=== PATIENT | female | born 1985 | race Two or more races ===

== ENCOUNTER 2019-08-06 06:00 | Inpatient (IN) | payer MEDICAID ==
[~2019-08-06] VITALS: Ht 172.7 cm; Wt 70.4 kg
[2019-08-06] MEDS ORDERED: SODIUM CHLORIDE 0.9% 1,000 ML IVB ONE (07:24)
[2019-08-06] MEDS ORDERED: InsuLIN REG 1unit/0.01ml Soln (100units/ml) IV ONE (07:30)
[2019-08-06] MEDS ORDERED: ONDANSETRON HCL 4 MG/2 ML VIAL IV ONE (07:30)
[2019-08-06 07:48] LABS: Basophils # (auto) 0 10 ^3/uL (0-0.2); Basophils % (auto) 0.3 % (0.0-2.0); Eosinophils # (auto) 0 10 ^3/uL (0-0.8); Hematocrit 39.7 % (36.0-46.0); Hemoglobin 12.7 g/dL (12.2-16.2); Lymphocytes # (auto) 1.4 10 ^3/uL (0.4-5.4); Lymphocytes % (auto) 11.1 % (10.0-50.0); Mean Corpuscular Hemoglobin 26.4 pg (28.0-32.0); Mean Corpuscular Hgb Conc. 31.9 g/dL (32.0-36.0); Mean Corpuscular Volume 82.8 fL (80.0-100.0); Monocytes # (auto) 0.5 10 ^3/uL (0-1.3); Monocytes % (auto) 4.1 % (0.0-12.0); Neutrophils # (auto) 10.6 10 ^3/uL (1.6-8.6); Neutrophils % (auto) 84.5 % (37.0-80.0); Nucleated Red Blood Cells % 0.1 %; Platelet Count (auto) 346 10^3/uL (140-450); Red Cell Distribution Width 14.7 % (11.8-14.3); White Blood Cell 12.5 10^3/uL (4.4-10.8)
[2019-08-06] MEDS ORDERED: ONDANSETRON HCL 4 MG/2 ML VIAL ONE ×2 (07:53→14:58)
[2019-08-06] MEDS ORDERED: MORPHINE SULFATE 4 MG/ML SYR/VIAL IV ONE (08:00)
[2019-08-06 08:04] LABS: Albumin 3.8 g/dL (3.4-5.0); Calcium 9.8 mg/dL (8.5-10.1); Magnesium 2.5 mg/dL (1.6-2.6); Potassium 4.1 mmol/L (3.5-5.1)
[2019-08-06 08:06] LABS: Lactic Acid w/Reflex 3.2 mmol/L (0.4-2.0)
[2019-08-06 08:12] LABS: BUN/Creatinine Ratio 17.6; Bilirubin, Total 0.5 mg/dL (0.2-1.0); Total Protein 8.7 g/dL (6.4-8.2)
[2019-08-06] MEDS ORDERED: InsuLIN R (HUMAN) 100 UNITS in SODIUM CHL 0.9% 99 ML IV SCH ×2 (10:22→16:30)
[2019-08-06] MEDS ORDERED: MORPHINE SULF INJ 2 MG/ML SYRINGE 1ML IV PRN (10:30)
[2019-08-06] MEDS ORDERED: PROMETHAZINE HCL 25 MG/ML 1ML IV PRN (10:30)
[2019-08-06] MEDS ORDERED: LORazepam 2MG/ML-1ML VIAL IV PRN (10:30)
[2019-08-06] MEDS ORDERED: DEXTROSE (50%) 50ML SYRG IV PRN ×2 (10:30→17:00)
[2019-08-06] MEDS ORDERED: NITROGLYCERIN 0.4 MG SL TAB SL PRN (10:30)
[2019-08-06] MEDS ORDERED: HYDROmorphone HCL 2 MG/ML VL ONE (10:39)
[2019-08-06] MEDS ORDERED: PROMETHAZINE HCL 25 MG/ML 1ML ONE (10:40)
[2019-08-06] MEDS ORDERED: PANTOPRAZOLE 40 MG/10 ML VIAL INJ IV ONE (10:45)
[2019-08-06] MEDS: HYDROmorphone HCL 2 MG/ML VL IV PRN ×4 (10:49→23:40)
[2019-08-06] MEDS: ACCU-CHEK COMFORT CURVE STRIP VI SCH ×7 (10:53→23:46)
[2019-08-06 11:34] LABS: Urine Bacteria NONE SEEN /hpf (None Seen); Urine Blood 1+ /uL (Negative); Urine Mucus FEW (None Seen); Urine Specific Gravity 1.034 (1.001-1.035); Urine WBC 24 /hpf (0 - 5)
[2019-08-06] MEDS: ONDANSETRON HCL 4 MG/2 ML VIAL IV PRN ×2 (15:06→19:47)
[2019-08-06 15:51] LABS: BUN/Creatinine Ratio 16.3; Calcium 7.9 mg/dL (8.5-10.1); Potassium 3.4 mmol/L (3.5-5.1)
[2019-08-06] MEDS ORDERED: SODIUM CHLORIDE 0.9% 1,000 ML IV SCH (16:22)
[2019-08-06] MEDS ORDERED: INSULIN LANTUS (GLARGINE) 1 /0.01ml (100units/ml) SC SCH (16:30)
[2019-08-06] MEDS ORDERED: POTASSIUM CHLORIDE 40 MEQ, LIDOCAINE 1% (LOCAL ANESTH.) 4 ML in SODIUM CHL 0.9% 100 ML IV ONE (16:30)
[2019-08-06] MEDS: LACTATED RINGER'S 1,000 ML IV SCH (17:05)
[2019-08-06] MEDS: PROMETHAZINE HCL 25 MG/ML 1ML IV PRN ×2 (17:05→23:40)
[2019-08-06] MEDS: InsuLIN REG 1unit/0.01ml Soln (100units/ml) SC SCH ×2 (20:00→23:46)
--- NOTE | 2019-08-06 22:18 | NUR ---
Paged hospitalist for patient elevated B/P. Awaiting call back.
--- NOTE | 2019-08-06 22:18 | NUR ---
Telemetry admit from ER GEOFF STRICKLAND admitted to Telemetry unit after SBAR received. Patient oriented to primary RN, unit, room, bed, and unit policies regarding patient care and visiting hours. Patient now on continuous telemetry monitoring, tele box #51. Patient placed on bedside oxygen, weighed by bedscale and encouraged to call if they need something. All questions and concerns addressed, patient verbalized understanding. Bed locked in lowest position and bed rails up x2. Call light within reach.
--- NOTE | 2019-08-06 22:21 | NUR ---
Hospitalist called back and no new orders given. Will continue to monitor for changes.
[2019-08-06 23:48] VITALS: BP 155/107
[2019-08-07] MEDS ORDERED: GABA300C10 PO (00:15)
[2019-08-07] MEDS ORDERED: INSU100I4 SC (00:15)
[2019-08-07] MEDS ORDERED: TRAZ-181 PO (00:15)
[2019-08-07] MEDS ORDERED: INSLANTI SC (00:15)
[2019-08-07] MEDS ORDERED: PNEUMOCOCCAL VACC POLYS 25 MCG/0.5 ML VIAL IM ONE (00:30)
[2019-08-07] MEDS: InsuLIN REG 1unit/0.01ml Soln (100units/ml) SC SCH ×5 (04:00→20:00)
[2019-08-07] MEDS: ACCU-CHEK COMFORT CURVE STRIP VI SCH ×5 (04:40→20:00)
[2019-08-07] MEDS: HYDROmorphone HCL 2 MG/ML VL IV PRN ×4 (05:15→22:35)
[2019-08-07] MEDS: ONDANSETRON HCL 4 MG/2 ML VIAL IV PRN ×3 (05:15→22:35)
[2019-08-07 05:35] VITALS: BP 145/103
--- NOTE | 2019-08-07 05:41 | NUR ---
Lab informed me that patient requested for gold leaf laborer to come later for blood draw. The gold leaf laborer stated that she will be back at about 9am to try again. Will continue to monitor patient for changes.
--- NOTE | 2019-08-07 07:20 | NUR ---
Opening Shift Note RECEIVED REPORT FROM NOC RN. Assumed care of patient, awake and alert. No S/S of distress/SOB,pain c/o nausea. BED IN LOWEST, LOCKED POSITION WITH SIDE RAILS UP x2 AND CALL LIGHT WITHIN REACH. Instructed on POC,call light within reach patient reminded instructed to call for assistance.patient verbalized understanding.will continue to monitor for changes Q1hr and PRN.
[2019-08-07] MEDS: LACTATED RINGER'S 1,000 ML IV SCH ×3 (08:30→15:52)
[2019-08-07] MEDS: PROMETHAZINE HCL 25 MG/ML 1ML IV PRN (08:40)
[2019-08-07 09:00] VITALS: BP 143/94
--- NOTE | 2019-08-07 09:15 | NUR ---
Solar Installer Technician stated unable to draw blood, patient very hard to stick,will re try again.
--- NOTE | 2019-08-07 10:00 | NUR ---
MD VISIT DR. JAMES HERE TO SEE AND EXAMINED PATIENT,RECEIVED ORDERS CARRIED OUT.
[2019-08-07] MEDS ORDERED: LABETALOL HCL 5 MG/ML 4ML SYRINGE IV PRN (10:15)
[2019-08-07] MEDS ORDERED: cefTRIAXone 1GM/50ML D5W 50 ML IV ONE (10:15)
[2019-08-07] MEDS: PANTOPRAZOLE 40 MG/10 ML VIAL INJ IV SCH (10:41)
--- NOTE | 2019-08-07 11:20 | NUR ---
WOUND CARE NOTE: IN TO SEE PATIENT AT THIS TIME FOR WOUND TO LEFT FOOT. PATIENT RECENTLY ADMITTED TO [facility] WITH DIAGNOSIS OF DKA. CURRENT MITA SCORE IS 19. PATIENT NOTED TO HAVE SMALL WOUND TO LEFT FOOT UPON ADMIT. WOUND PHOTO TAKEN AT THAT TIME BY BEDSIDE NURSE FOR REFERENCE. PATIENT IS NOTED TO HAVE A SMALL PARTIAL THICKNESS OPEN BLISTER, MEASURING 1 X 1 CM TO LEFT LATERAL FOOT. WOUND BED AND PERIWOUND IS RED. SCANT SEROUS DRAINAGE NOTED. APPLIED THERAHONEY, OPTIFOAM GENTLE DRESSING. NO OTHER SKIN INTEGRITY ISSUES SEEN AT THIS TIME. RECOMMEND: EOD/PRN DRESSING CHANGE TO WOUND ON LEFT FOOT. SKIN/WOUND CARE PLAN. NO ADDITIONAL WOUND CARE MONITORING NEEDED AT THIS TIME. Addendum: 08/07/19 at 1510 by Gavi Chan RN Amended: Links added.
[2019-08-07 13:00] VITALS: BP 151/99
--- NOTE | 2019-08-07 13:30 | NUR ---
Lathing Supervisor stated unable to draw blood, patient very hard to stick,will re try again.
[2019-08-07] MEDS: LORazepam 2MG/ML-1ML VIAL IV PRN (15:47)
[2019-08-07 16:49] VITALS: BP 147/104
--- NOTE | 2019-08-07 18:51 | NUR ---
RESTING QUIETLY NO DISTRESS NO DISCOMFORT,STATUS UNCHANGED
--- NOTE | 2019-08-07 18:57 | NUR ---
A.M. blood draw,drawn
[2019-08-07 19:08] LABS: Basophils # (auto) 0.1 10 ^3/uL (0-0.2); Basophils % (auto) 0.7 % (0.0-2.0); Eosinophils # (auto) 0 10 ^3/uL (0-0.8); Mean Corpuscular Hemoglobin 26.2 pg (28.0-32.0); Nucleated Red Blood Cells % 0.1 %
[2019-08-07 19:09] LABS: Hematocrit 37.5 % (36.0-46.0); Hemoglobin 12.3 g/dL (12.2-16.2); Lymphocytes # (auto) 2.7 10 ^3/uL (0.4-5.4); Lymphocytes % (auto) 21.1 % (10.0-50.0); Mean Corpuscular Hgb Conc. 32.9 g/dL (32.0-36.0); Mean Corpuscular Volume 79.8 fL (80.0-100.0); Monocytes # (auto) 1.2 10 ^3/uL (0-1.3); Monocytes % (auto) 9.4 % (0.0-12.0); Neutrophils # (auto) 8.7 10 ^3/uL (1.6-8.6); Neutrophils % (auto) 68.8 % (37.0-80.0); Platelet Count (auto) 332 10^3/uL (140-450); Red Cell Distribution Width 14.3 % (11.8-14.3); White Blood Cell 12.6 10^3/uL (4.4-10.8)
--- NOTE | 2019-08-07 19:20 | NUR ---
Opening Shift Note Assumed care of patient. Patient is awake and alert. No S/S of distress/SOB or pain. Instructed on POC and to call for assist PRN, will continue to monitor for changes Q1hr and PRN. Bed locked in lowest position and bed rails up x2. Call light within reach.
[2019-08-07 19:23] LABS: Albumin 2.6 g/dL (3.4-5.0); Calcium 7.6 mg/dL (8.5-10.1)
[2019-08-07 19:27] LABS: Bilirubin, Total 0.3 mg/dL (0.2-1.0); Phosphorus 1.3 mg/dL (2.5-4.90); Total Protein 6.7 g/dL (6.4-8.2)
[2019-08-07 20:19] LABS: Potassium 2.8 mmol/L (3.5-5.1)
--- NOTE | 2019-08-07 20:24 | NUR ---
Paged Dr. Handy for critical lab value for potassium of 2.8
--- NOTE | 2019-08-07 20:28 | NUR ---
Dr. Handy called back and new orders given. Will carry out orders and continue to monitor patient for changes.
[2019-08-07] MEDS ORDERED: POTASSIUM CHLORIDE 40 MEQ, LIDOCAINE 1% (LOCAL ANESTH.) 4 ML in SODIUM CHL 0.9% 100 ML IV ONE (20:45)
[2019-08-07 22:00] VITALS: BP 147/101
--- NOTE | 2019-08-07 22:36 | NUR ---
Patient pain level of 9/10. Patient requested PRN medication Dilaudid. Dilaudid was given for pain. Will continue to monitor for changes.
[2019-08-08] MEDS: ACCU-CHEK COMFORT CURVE STRIP VI SCH ×6 (00:50→21:49)
[2019-08-08] MEDS: LACTATED RINGER'S 1,000 ML IV SCH ×3 (00:51→16:03)
[2019-08-08] MEDS: HYDROmorphone HCL 2 MG/ML VL IV PRN ×4 (04:17→19:15)
[2019-08-08] MEDS: InsuLIN REG 1unit/0.01ml Soln (100units/ml) SC SCH ×6 (04:19→22:46)
[2019-08-08 05:00] VITALS: BP 138/104
--- NOTE | 2019-08-08 07:00 | NUR ---
Opening Shift Note Received report on the patient. Awake lying in bed. Patient shows no signs of distress at this time. Discussed plan of care with the patient. Bed in lowest position, side rails up x2, and the call light is within reach.
--- NOTE | 2019-08-08 08:00 | NUR ---
Patient had a pain level of 10/10 all over her body
[2019-08-08 09:00] VITALS: BP 146/106
[2019-08-08 09:20] LABS: Albumin 2.7 g/dL (3.4-5.0); Calcium 7.6 mg/dL (8.5-10.1); Potassium 3.2 mmol/L (3.5-5.1)
[2019-08-08 09:24] LABS: BUN/Creatinine Ratio 12.1; Bilirubin, Total 0.3 mg/dL (0.2-1.0); Total Protein 6.8 g/dL (6.4-8.2)
[2019-08-08] MEDS: PANTOPRAZOLE 40 MG/10 ML VIAL INJ IV SCH (09:31)
[2019-08-08] MEDS: cefTRIAXone 1GM/50ML D5W 50 ML IV SCH (09:31)
[2019-08-08 09:50] LABS: Phosphorus 1.4 mg/dL (2.5-4.90)
[2019-08-08 09:51] LABS: Magnesium 2.2 mg/dL (1.6-2.6)
--- NOTE | 2019-08-08 09:59 | NUR ---
Dr. Handy at bedside. New orders received
[2019-08-08] MEDS ORDERED: POTASSIUM CHLORIDE 40 MEQ, LIDOCAINE 1% (LOCAL ANESTH.) 4 ML in SODIUM CHL 0.9% 100 ML IV ONE (10:00)
[2019-08-08 10:03] LABS: Basophils # (auto) 0.1 10 ^3/uL (0-0.2); Basophils % (auto) 1.2 % (0.0-2.0); Eosinophils # (auto) 0 10 ^3/uL (0-0.8); Eosinophils % (auto) 0.3 % (0.0-7.0); Hematocrit 49.2 % (36.0-46.0); Lymphocytes # (auto) 2.6 10 ^3/uL (0.4-5.4); Lymphocytes % (auto) 29.8 % (10.0-50.0); Mean Corpuscular Hemoglobin 26.1 pg (28.0-32.0); Mean Corpuscular Hgb Conc. 32.6 g/dL (32.0-36.0); Monocytes # (auto) 0.8 10 ^3/uL (0-1.3); Monocytes % (auto) 9.5 % (0.0-12.0); Neutrophils # (auto) 5.2 10 ^3/uL (1.6-8.6); Neutrophils % (auto) 59.2 % (37.0-80.0); Nucleated Red Blood Cells % 0.2 %; Platelet Count (auto) 151 10^3/uL (140-450); Red Blood Cells 6.14 10^6/uL (4.0-5.20); Red Cell Distribution Width 14.6 % (11.8-14.3); White Blood Cell 8.8 10^3/uL (4.4-10.8)
[2019-08-08] MEDS ORDERED: LISINOPRIL 5 MG TAB PO ONE (10:15)
--- NOTE | 2019-08-08 15:31 | NUR ---
Nutrition Assessment Notes Please refer to link for full assessment notes. Est Energy needs: 6124-6402 kcals (25-30 kcal/kgBW) Est Protein needs: 49-61 gms/day (0.8-1.0 gm/kgBW) Will continue to monitor and reassess prn. Addendum: 08/08/19 at [address] Amended: Links added.
[2019-08-08] MEDS: LORazepam 2MG/ML-1ML VIAL IV PRN ×2 (15:52→22:35)
[2019-08-08 17:00] VITALS: BP 135/99
--- NOTE | 2019-08-08 18:52 | NUR ---
Patient refused to ambulate on this shift.
--- NOTE | 2019-08-08 19:10 | NUR ---
Opening Note Assumed care of patient, awake and alert. No S/S of distress/SOB, patient asking for Ativan to sleep and pain medication. Instructed patient to ambulate, per patient, she ambulated last 2 days ago. Patient reported not tolerating PO nutrition. Instructed on POC and to call for assist as neede, will continue to monitor.
[2019-08-08 22:00] VITALS: BP 135/94
[2019-08-09] MEDS: ACCU-CHEK COMFORT CURVE STRIP VI SCH ×6 (00:22→20:00)
[2019-08-09] MEDS: LACTATED RINGER'S 1,000 ML IV SCH ×5 (00:30→22:27)
[2019-08-09] MEDS: InsuLIN REG 1unit/0.01ml Soln (100units/ml) SC SCH ×6 (00:32→20:00)
[2019-08-09] MEDS: ONDANSETRON HCL 4 MG/2 ML VIAL IV PRN (04:11)
[2019-08-09] MEDS: HYDROmorphone HCL 2 MG/ML VL IV PRN ×3 (04:11→19:51)
[2019-08-09 05:00] VITALS: BP 121/83
[2019-08-09 07:20] LABS: Basophils # (auto) 0 10 ^3/uL (0-0.2); Basophils % (auto) 0.5 % (0.0-2.0); Eosinophils # (auto) 0.1 10 ^3/uL (0-0.8); Hemoglobin 13.5 g/dL (12.2-16.2); Lymphocytes # (auto) 3.1 10 ^3/uL (0.4-5.4); Lymphocytes % (auto) 35.6 % (10.0-50.0); Mean Corpuscular Hemoglobin 26.1 pg (28.0-32.0); Mean Corpuscular Volume 79.2 fL (80.0-100.0); Monocytes # (auto) 0.8 10 ^3/uL (0-1.3); Monocytes % (auto) 8.7 % (0.0-12.0); Neutrophils # (auto) 4.7 10 ^3/uL (1.6-8.6); Neutrophils % (auto) 54.2 % (37.0-80.0); Nucleated Red Blood Cells % 0.2 %; Platelet Count (auto) 343 10^3/uL (140-450); Red Blood Cells 5.18 10^6/uL (4.0-5.20); Red Cell Distribution Width 14.4 % (11.8-14.3); White Blood Cell 8.7 10^3/uL (4.4-10.8)
[2019-08-09 07:27] LABS: Albumin 2.4 g/dL (3.4-5.0); Calcium 7.7 mg/dL (8.5-10.1); Magnesium 2.1 mg/dL (1.6-2.6)
[2019-08-09 07:32] LABS: BUN/Creatinine Ratio 12.9; Bilirubin, Total 0.3 mg/dL (0.2-1.0); Total Protein 6.1 g/dL (6.4-8.2)
[2019-08-09 08:00] VITALS: BP 135/97
--- NOTE | 2019-08-09 08:58 | NUR ---
MD PAGE CALLED DR JAMES AND MESSAGE LEFT, REGARDING POTASSIUM KCL 3.0, ALSO PT HAS NO IV AND MIDLINE ORDER WAS ENTERED, PT ALSO REQUESTING NORCO AND ATIVAN PO SINCE THERE IS NO IV ACCESS, CONT CARE
[2019-08-09 09:00] VITALS: BP 97/98
[2019-08-09] MEDS: PANTOPRAZOLE 40 MG/10 ML VIAL INJ IV SCH (10:00)
[2019-08-09] MEDS ORDERED: HYDROcodone-ACET 5/325MG TAB PO PRN (10:15)
[2019-08-09] MEDS ORDERED: POTASSIUM CHLORIDE 40 MEQ, LIDOCAINE 1% (LOCAL ANESTH.) 4 ML in SODIUM CHL 0.9% 100 ML IV ONE (10:15)
--- NOTE | 2019-08-09 10:16 | NUR ---
SPOKE WITH DR JAMES AT NURSING STATION, NEW ORDERS RECEIVED FOR POTASSIUM AND PAIN MEDICATIONS, AWARE PT IS PENDING ML FOR IV ACCESS, CONT CARE
[2019-08-09] MEDS: cefTRIAXone 1GM/50ML D5W 50 ML IV SCH (10:35)
[2019-08-09] MEDS: LISINOPRIL 5 MG TAB PO SCH (10:36)
[2019-08-09] MEDS: LORazepam 0.5 MG TAB PO PRN ×2 (10:36→21:02)
--- NOTE | 2019-08-09 11:56 | NUR ---
MIDLINE RN AT BEDSIDE 20G INSERTED TO LAC, SITE PATENT AND BENIGN, CONT CARE
[2019-08-09 13:00] VITALS: BP 122/88
[2019-08-09 17:00] VITALS: BP 122/79
--- NOTE | 2019-08-09 19:15 | NUR ---
Opening note Assumed care of patient. Patient alert and orientated x4. No SOB or distress noted. Patient states she has pain. In her head. will medicate per orders. POC reviewed. No questions at this time. Bed locked in lowest position. Side rails up 2x. Call light within reach. Will continue to monitor.
[2019-08-09] MEDS: POTASSIUM CHL 20 Meq TABLET PO SCH (21:01)
[2019-08-09 22:32] VITALS: BP 155/104
[2019-08-10] VITALS (7 sets, daily range): BP systolic 119–154; BP diastolic 77–102
[2019-08-10] MEDS: InsuLIN REG 1unit/0.01ml Soln (100units/ml) SC SCH ×6 (00:16→20:00)
[2019-08-10] MEDS: ACCU-CHEK COMFORT CURVE STRIP VI SCH ×6 (00:16→20:00)
[2019-08-10] MEDS: HYDROmorphone HCL 2 MG/ML VL IV PRN ×6 (00:27→22:02)
[2019-08-10] MEDS: LORazepam 0.5 MG TAB PO PRN ×3 (03:16→20:33)
--- NOTE | 2019-08-10 07:25 | NUR ---
Opening Shift Note Assumed care of patient, awake and alert. No S/S of distress/SOB or pain noted at this time. Instructed on POC and to call for assist PRN, call light within reach, IV to left upper arm patent and benign, will continue to monitor for changes Q1hr and PRN.
--- NOTE | 2019-08-10 07:25 | NUR ---
Closing note Endorsed care to day shift RN.
[2019-08-10] MEDS: LACTATED RINGER'S 1,000 ML IV SCH ×2 (08:30→12:45)
[2019-08-10] MEDS: LISINOPRIL 5 MG TAB PO SCH (09:18)
[2019-08-10] MEDS: PANTOPRAZOLE 40 MG/10 ML VIAL INJ IV SCH (09:19)
[2019-08-10] MEDS: POTASSIUM CHL 20 Meq TABLET PO SCH ×3 (09:19→22:23)
[2019-08-10] MEDS: cefTRIAXone 1GM/50ML D5W 50 ML IV SCH (09:20)
--- NOTE | 2019-08-10 09:50 | NUR ---
MD PAGE CALLED DR JAMES AND MESSAGE LEFT WITH CIVIL DIVISION DEPUTY SHERIFF, REGARDING POTASSIUM KCL 2.8 , CONT CARE
[2019-08-10 10:08] LABS: Basophils # (auto) 0 10 ^3/uL (0-0.2); Eosinophils # (auto) 0.4 10 ^3/uL (0-0.8); Lymphocytes # (auto) 2.3 10 ^3/uL (0.4-5.4); Mean Corpuscular Hemoglobin 26.3 pg (28.0-32.0); Monocytes # (auto) 0.5 10 ^3/uL (0-1.3); Neutrophils # (auto) 3.6 10 ^3/uL (1.6-8.6); Nucleated Red Blood Cells % 0.1 %
[2019-08-10 10:10] LABS: Basophils % (auto) 0.5 % (0.0-2.0); Eosinophils % (auto) 5.5 % (0.0-7.0); Hematocrit 34.6 % (36.0-46.0); Hemoglobin 11.3 g/dL (12.2-16.2); Lymphocytes % (auto) 33.6 % (10.0-50.0); Mean Corpuscular Hgb Conc. 32.6 g/dL (32.0-36.0); Mean Corpuscular Volume 80.8 fL (80.0-100.0); Monocytes % (auto) 7.9 % (0.0-12.0); Neutrophils % (auto) 52.5 % (37.0-80.0); Platelet Count (auto) 263 10^3/uL (140-450); Red Blood Cells 4.28 10^6/uL (4.0-5.20); Red Cell Distribution Width 14.9 % (11.8-14.3); White Blood Cell 6.9 10^3/uL (4.4-10.8)
[2019-08-10 10:26] LABS: BUN/Creatinine Ratio 9.5; Calcium 7.3 mg/dL (8.5-10.1)
[2019-08-10 10:29] LABS: Potassium 2.8 mmol/L (3.5-5.1)
[2019-08-10] MEDS ORDERED: POTASSIUM CHLORIDE 40 MEQ, LIDOCAINE 1% (LOCAL ANESTH.) 4 ML in SODIUM CHL 0.9% 100 ML IV ONE (12:45)
--- NOTE | 2019-08-10 15:49 | NUR ---
Nutrition Followup Notes Pt wt is 70.1 kg Pt was sleeping with no relatives at bedside when rounded this morning. Pt is with a Clear Liquid diet, appetite is fair aeb ave 66% PO intake over three meals. Pt with no noted distress per RN doc. Est Energy needs: 6491-8616 kcals (25-30 kcal/kgBW) Est Protein needs: 49-61 gms/day (0.8-1.0 gm/kgBW) Will continue to monitor and reassess prn. LABS: GLUC 139 H, ALB 2.4 L, CA 7.3 L GI:Last BM noted on 08/08 per RN doc BS: 18 mod risk. Please refer to wound assessment report for full details. PES: Problem 1) Increased nutrient needs r/t pt with poor appetite aeb pt ave PO intake of 32% over 4 meals 2) Food and nutrition knowledge deficit r/t pt dietary non-compliance aeb pt hyperglycemia, DKA 3) Altered nutrition related lab values r/t current medical condition aeb hypokalemia, hyperchloremia, hyperglycemia, hypocalcemia, mod hypoalbuminemia Comments Will continue to closely monitor pertinent labs, PO intake and skin status prn. Will followup in 3-5 days 1) Continue to closely monitor pt PO intake to meet at least 75% of meals 2) Gradually advance pt to oral CCHO 60g diet when medically feasible and as tolerated 3) Refer pt to RD/CDE for nutrition education upon D/C 4) Continue current plan of care
[2019-08-11] MEDS: ACCU-CHEK COMFORT CURVE STRIP VI SCH ×6 (00:07→19:44)
[2019-08-11] MEDS: LACTATED RINGER'S 1,000 ML IV SCH ×2 (01:24→15:25)
[2019-08-11] MEDS: HYDROmorphone HCL 2 MG/ML VL IV PRN ×6 (02:05→22:33)
--- NOTE | 2019-08-11 03:30 | NUR ---
Opening Shift Note: Assumed care of patient. Patient asleep at this time. No S/S of distress/SOB or pain. Bed in lowest locked position, side rails up x 2, call light within reach. Patient will be instructed on POC and to call for assist PRN, will continue to monitor for changes Q1hr and PRN.
[2019-08-11] MEDS: InsuLIN REG 1unit/0.01ml Soln (100units/ml) SC SCH ×6 (04:00→19:51)
[2019-08-11 04:30] VITALS: BP 128/76
[2019-08-11] MEDS: LORazepam 0.5 MG TAB PO PRN ×3 (04:44→19:51)
[2019-08-11 09:00] VITALS: BP 135/93
[2019-08-11] MEDS: POTASSIUM CHL 20 Meq TABLET PO SCH ×2 (09:47→22:12)
[2019-08-11] MEDS: PANTOPRAZOLE 40 MG/10 ML VIAL INJ IV SCH (09:47)
[2019-08-11] MEDS: cefTRIAXone 1GM/50ML D5W 50 ML IV SCH (09:47)
[2019-08-11] MEDS: LISINOPRIL 5 MG TAB PO SCH (09:49)
[2019-08-11 11:44] LABS: Albumin 2.5 g/dL (3.4-5.0); BUN/Creatinine Ratio 8.5; Calcium 7.6 mg/dL (8.5-10.1); Magnesium 2.1 mg/dL (1.6-2.6); Potassium 3.6 mmol/L (3.5-5.1)
[2019-08-11 11:47] LABS: Bilirubin, Total 0.5 mg/dL (0.2-1.0); Total Protein 6.2 g/dL (6.4-8.2)
[2019-08-11 12:22] VITALS: BP 137/89
--- NOTE | 2019-08-11 12:49 | NUR ---
DR. MENDIETA: Dr. Sherice Handy at bedside. Discussed POC with patient.
[2019-08-11 17:00] VITALS: BP 117/88
--- NOTE | 2019-08-11 18:52 | NUR ---
Closing note: Patient resting in bed. No S/S of distress or SOB at this time. Care endorsed to NOC RN.
--- NOTE | 2019-08-11 19:15 | NUR ---
Opening Shift Note: Assumed care of patient. Patient is awake, alert, and oriented X 4. No S/S of respiratory distress noted. No SOB reported. Respirations are regular and non-labored. Bed in lowest locked position, side rails up x 2, call light within reach. Tele box matches to the monitor. Patient instructed on POC and to call for assistance as needed. Will continue to monitor for changes Q1hr and PRN.
[2019-08-11 20:00] VITALS: BP 114/82
[2019-08-11 22:00] VITALS: BP 114/82
[2019-08-11] MEDS ORDERED: INSULIN LANTUS (GLARGINE) 1 /0.01ml (100units/ml) SC SCH (22:00)
[2019-08-12] MEDS: ACCU-CHEK COMFORT CURVE STRIP VI SCH ×4 (00:35→12:00)
[2019-08-12] MEDS: HYDROmorphone HCL 2 MG/ML VL IV PRN ×3 (02:36→11:50)
[2019-08-12] MEDS: InsuLIN REG 1unit/0.01ml Soln (100units/ml) SC SCH ×4 (04:33→12:00)
[2019-08-12] MEDS: LACTATED RINGER'S 1,000 ML IV SCH (04:41)
[2019-08-12 05:00] VITALS: BP 135/95
--- NOTE | 2019-08-12 07:20 | NUR ---
Opening Shift Note: Assumed care of patient, awake and alert. No S/S of distress/SOB or pain. Bed in lowest locked position, side rails up x 2, call light within reach. Patient instructed on POC and to call for assist PRN, will continue to monitor for changes Q1hr and PRN.
[2019-08-12 08:51] VITALS: BP 133/95
[2019-08-12] MEDS: cefTRIAXone 1GM/50ML D5W 50 ML IV SCH (09:01)
[2019-08-12] MEDS: LISINOPRIL 5 MG TAB PO SCH (09:02)
[2019-08-12] MEDS: POTASSIUM CHL 20 Meq TABLET PO SCH (09:02)
[2019-08-12] MEDS: PANTOPRAZOLE 40 MG/10 ML VIAL INJ IV SCH (09:02)
[2019-08-12] MEDS: LORazepam 0.5 MG TAB PO PRN (09:02)
[2019-08-12 11:38] LABS: Potassium 4.2 mmol/L (3.5-5.1)
[2019-08-12 11:43] LABS: BUN/Creatinine Ratio 6.7; Calcium 8.1 mg/dL (8.5-10.1)
[2019-08-12 13:27] VITALS: BP 131/78
[2019-08-12 13:50] VITALS: BP 133/95
--- NOTE | 2019-08-12 15:14 | NUR ---
Discharge instructions given as ordered. Encourage to follow up with PMD as instructed. All questions and concerns addressed. Patient verbalized understanding. Medication reconciliation form completed and copy given to patient. IV removed with catheter intact, pressure dressing applied. Telemetry unit returned to ICU. Discharge wound photo taken. Patient taken to vehicle via wheelchair with all personal belongings, accompanied by staff and family member. No distress noted at time of departure.
== END 2019-08-12 15:14 | disposition home or self-care (01) | DRG 720 ==
LOC: ER 06:00 → OVERFLOW 06:01 → TELE-WESTW 21:56
PROVIDERS: ADMIT Nurse Practitioner Acute Care; ATTEND Internal Medicine
DX: A41.9 Sepsis, unspecified organism (principal); N17.0 Acute kidney failure with tubular necrosis; E43 Unspecified severe protein-calorie malnutrition; E11.10 Type 2 diabetes mellitus with ketoacidosis without coma; E86.0 Dehydration; N39.0 Urinary tract infection, site not specified; R03.0 Elevated blood-pressure reading, without diagnosis of hypertension; E11.65 Type 2 diabetes mellitus with hyperglycemia; Z91.19 Patient's noncompliance with other medical treatment and regimen; Z79.891 Long term (current) use of opiate analgesic; Z79.4 Long term (current) use of insulin; Z89.201 Acquired absence of right upper limb, unspecified level; Z82.49 Family history of ischemic heart disease and other diseases of the circulatory system; Z83.3 Family history of diabetes mellitus; Z68.23 Body mass index [BMI] 23.0-23.9, adult; Z89.221 Acquired absence of right upper limb above elbow; Z88.0 Allergy status to penicillin
CPT/HCPCS: 36415; 36600; 71045; 74022; 80048; 80053; 81001; 82010; 82150; 82805; 82962; 83605; 83690; 83735; 83930; 84100; 84702; 85025; 87081; 93005; 96365; 96368; 96375; 99291; C9113; G0378; J0696; J1815; J2001; J2405; J3490

== ENCOUNTER 2019-09-27 20:16 | Inpatient (IN) | payer MEDICAID ==
[~2019-09-27] VITALS: Ht 172.7 cm; Wt 57.7 kg
[~2019-09-27 20:16] MED LIST: GABA300C10 PO; INSLANTI SC; INSU100I4 SC; TRAZ-181 PO
[2019-09-27] MEDS ORDERED: ONDANSETRON HCL 4 MG/2 ML VIAL IV ONE (22:30)
[2019-09-27] MEDS ORDERED: SODIUM CHLORIDE 0.9% 1,000 ML IV ONE (22:30)
[2019-09-27] MEDS ORDERED: HYDROmorphone HCL 2 MG/ML VL IV ONE (22:30)
[2019-09-27] MEDS ORDERED: DexAMETHasone SOD PHOS 10MG/1ML VIAL INJ IV ONE (22:45)
[2019-09-27] MEDS ORDERED: DOXYCYCLINE 100MG/250ML 250 ML IV ONE (22:45)
[2019-09-27 23:42] LABS: Basophils # (auto) 0 10 ^3/uL (0-0.2); Basophils % (auto) 0.1 % (0.0-2.0); Eosinophils # (auto) 0 10 ^3/uL (0-0.8); Mean Corpuscular Volume 83.4 fL (80.0-100.0); Monocytes # (auto) 0.2 10 ^3/uL (0-1.3); Monocytes % (auto) 1.7 % (0.0-12.0); Red Cell Distribution Width 15.2 % (11.8-14.3); White Blood Cell 10.9 10^3/uL (4.4-10.8)
[2019-09-27 23:46] LABS: Hematocrit 47.9 % (36.0-46.0); Hemoglobin 15.4 g/dL (12.2-16.2); Lymphocytes # (auto) 1.4 10 ^3/uL (0.4-5.4); Lymphocytes % (auto) 12.8 % (10.0-50.0); Mean Corpuscular Hemoglobin 26.8 pg (28.0-32.0); Mean Corpuscular Hgb Conc. 32.2 g/dL (32.0-36.0); Neutrophils # (auto) 9.3 10 ^3/uL (1.6-8.6); Neutrophils % (auto) 85.4 % (37.0-80.0); Nucleated Red Blood Cells % 0.1 %; Platelet Count (auto) 326 10^3/uL (140-450); Red Blood Cells 5.74 10^6/uL (4.0-5.20)
[2019-09-28 00:03] LABS: Albumin 3.6 g/dL (3.4-5.0); Anion Gap 12 (5-15); Blood Urea Nitrogen 20 mg/dL (7-18); Calcium 9.6 mg/dL (8.5-10.1); Carbon Dioxide 22 mmol/L (21-32); Chloride 99 mmol/L (98-107); Glucose 344 mg/dL (74-106); Lipase 28 U/L (73-393); Potassium 4.3 mmol/L (3.5-5.1); Sodium 133 mmol/L (136-145)
[2019-09-28 00:05] LABS: Alanine Aminotransferase 23 U/L (13-56); Aspartate Aminotransferase 30 U/L (15-37); BUN/Creatinine Ratio 11.2; GFR African American 42 mL/min; GFR Non-African American 35 mL/min
[2019-09-28 00:07] LABS: Alkaline Phosphatase 86 U/L (45-117); Bilirubin, Total 0.8 mg/dL (0.2-1.0); Total Protein 9.4 g/dL (6.4-8.2)
[2019-09-28] MEDS ORDERED: levoFLOXacin 500MG 100 ML IV ONE (00:45)
[2019-09-28] MEDS ORDERED: LABETALOL HCL 5 MG/ML 4ML SYRINGE IV ONE (00:45)
[2019-09-28] MEDS ORDERED: VANCOMYCIN 1GM/250ML 250 ML IV ONE (00:45)
[2019-09-28] MEDS ORDERED: SODIUM CHLORIDE 0.9% 1,000 ML IV ONE (01:00)
[2019-09-28] MEDS ORDERED: PROMETHAZINE HCL 25 MG/ML 1ML IV ONE ×2 (02:45→08:30)
[2019-09-28 05:36] LABS: Alcohol, Urine < 3.0 mg/dL (0-10); Amphetamine Screen, Urine NEGATIVE (NEGATIVE); Barbiturate Scree,Urine NEGATIVE (NEGATIVE); Benzodiazephine Screen, Urine NEGATIVE (NEGATIVE); Cannabinoid Screen, Urine POSITIVE (NEGATIVE); Cocaine Screen, Urine NEGATIVE (NEGATIVE); Opiate Scree,Urine NEGATIVE (NEGATIVE); Phencyclidine Screen, Urine NEGATIVE (NEGATIVE)
[2019-09-28 06:06] LABS: Urine Bacteria FEW /hpf (None Seen); Urine Blood 1+ /uL (Negative); Urine Hyaline Cast FEW /lpf (0 - 2); Urine Specific Gravity 1.024 (1.001-1.035); Urine WBC 5 /hpf (0 - 5)
[2019-09-28] MEDS ORDERED: ONDANSETRON HCL 4 MG/2 ML VIAL IV ONE (06:15)
[2019-09-28] MEDS ORDERED: HYDROmorphone HCL 2 MG/ML VL IV ONE (07:00)
[2019-09-28] MEDS ORDERED: SODIUM CHLORIDE 0.9% 1,000 ML IV SCH (08:29)
[2019-09-28] MEDS ORDERED: ACETAMINOPHEN 500 MG TAB PO PRN (08:30)
[2019-09-28] MEDS ORDERED: LORazepam 2MG/ML-1ML VIAL IV ONE (08:30)
[2019-09-28] MEDS ORDERED: MORPHINE SULF INJ 2 MG/ML SYRINGE 1ML IV PRN (08:45)
[2019-09-28] MEDS ORDERED: DEXTROSE (50%) 50ML SYRG IV PRN ×3 (08:45→17:30)
[2019-09-28] MEDS ORDERED: NITROGLYCERIN 0.4 MG SL TAB SL PRN (08:45)
[2019-09-28] MEDS ORDERED: InsuLIN REG 1unit/0.01ml Soln (100units/ml) SC ONE (09:00)
[2019-09-28 09:50] LABS: Basophils # (auto) 0 10 ^3/uL (0-0.2); Eosinophils # (auto) 0 10 ^3/uL (0-0.8); Hemoglobin 12.1 g/dL (12.2-16.2); Mean Corpuscular Volume 81.4 fL (80.0-100.0); Monocytes # (auto) 0.3 10 ^3/uL (0-1.3); Monocytes % (auto) 2.6 % (0.0-12.0)
[2019-09-28 09:51] LABS: Basophils % (auto) 0.3 % (0.0-2.0); Hematocrit 37.9 % (36.0-46.0); Lymphocytes # (auto) 1.2 10 ^3/uL (0.4-5.4); Lymphocytes % (auto) 9.4 % (10.0-50.0); Mean Corpuscular Hemoglobin 25.9 pg (28.0-32.0); Mean Corpuscular Hgb Conc. 31.9 g/dL (32.0-36.0); Neutrophils % (auto) 87.7 % (37.0-80.0); Platelet Count (auto) 277 10^3/uL (140-450); Red Blood Cells 4.65 10^6/uL (4.0-5.20); Red Cell Distribution Width 14.8 % (11.8-14.3); White Blood Cell 12.5 10^3/uL (4.4-10.8)
[2019-09-28] MEDS ORDERED: ENOXAPARIN SOD 40 MG/0.4 ML SYRINGE SC SCH (10:00)
[2019-09-28] MEDS: ZINC SULFATE 220mg CAP or TAB PO SCH (10:00)
[2019-09-28 10:12] LABS: Calcium 8.2 mg/dL (8.5-10.1); Magnesium 1.8 mg/dL (1.6-2.6); Potassium 3.6 mmol/L (3.5-5.1)
[2019-09-28 10:16] LABS: BUN/Creatinine Ratio 14.1; Bilirubin, Total 0.5 mg/dL (0.2-1.0); Total Protein 7.6 g/dL (6.4-8.2)
[2019-09-28 10:21] LABS: CRP High Sensitivity 2.88 mg/dL (< 0.3)
[2019-09-28] MEDS ORDERED: InsuLIN REG 1unit/0.01ml Soln (100units/ml) SC SCH ×2 (12:00→18:00)
[2019-09-28] MEDS: ASCORBIC ACID 1,000 MG TAB PO SCH (12:10)
[2019-09-28] MEDS: CHOLECALCIFEROL (VITD3) 2,000 UNIT CAP PO SCH (12:10)
[2019-09-28] MEDS: PANTOPRAZOLE 40 MG/10 ML VIAL INJ IV SCH (12:10)
[2019-09-28] MEDS: ACCU-CHEK COMFORT CURVE STRIP VI SCH ×3 (12:18→18:00)
[2019-09-28] MEDS: DOXYCYCLINE 100MG/250ML 250 ML IV SCH (14:00)
[2019-09-28 14:25] VITALS: BP 152/92
[2019-09-28] MEDS: metroNIDAZOLE 500MG/100ML 100 ML IV SCH ×2 (15:15→22:38)
[2019-09-28] MEDS: InsuLIN REG 1unit/0.01ml Soln (100units/ml) SC SCH (17:42)
[2019-09-28] MEDS ORDERED: ACCU-CHEK COMFORT CURVE STRIP VI SCH (18:00)
[2019-09-28] MEDS: LORazepam 2MG/ML-1ML VIAL IV PRN (20:09)
[2019-09-28] MEDS: MORPHINE SULF INJ 2 MG/ML SYRINGE 1ML IV PRN (20:09)
[2019-09-28] MEDS: ONDANSETRON HCL 4 MG/2 ML VIAL IV PRN (20:09)
[2019-09-28] MEDS: ALBUTEROL SULF HFA 90MCG INH 200DOSE IN SCH (22:00)
--- NOTE | 2019-09-28 22:27 | NUR ---
Telemetry admit from ER GEOFF STRICKLAND admitted to Telemetry unit. Patient oriented to Teressa Dennison, primary RN, unit, room, bed, and unit policies regarding patient care and visiting hours. Patient now on continuous telemetry monitoring, tele box #25 and telemetry reading on arrival to unit is SR in 90's. Patient placed on bedside oxygen, weighed by bedscale and encouraged to call if they need something. All questions and concerns addressed, patient verbalized understanding.
[2019-09-28] MEDS: HYDROcodone-ACET 5/325MG TAB PO PRN (22:59)
--- NOTE | 2019-09-28 23:19 | NUR ---
Respiratory note: MDI HELD AT THIS TIME, PT IN NO RESPIRATORY DISTRESS. WILL CONTINUE TO MONITOR.
--- NOTE | 2019-09-29 | NUR ---
Attempted admission questions Patient refused admit questions at this time. Explained to patient the need for admission process, patient verbalized understanding and continued to refuse stating she just wanted her medication. Patient educated on PRN medications and when they are available again. No medications available at this time.
[2019-09-29] MEDS: DOXYCYCLINE 100MG/250ML 250 ML IV SCH ×3 (00:03→22:00)
[2019-09-29] MEDS: ACCU-CHEK COMFORT CURVE STRIP VI SCH ×4 (00:25→18:00)
[2019-09-29] MEDS: InsuLIN REG 1unit/0.01ml Soln (100units/ml) SC SCH ×4 (00:25→18:00)
[2019-09-29] MEDS: MORPHINE SULF INJ 2 MG/ML SYRINGE 1ML IV PRN ×5 (00:26→21:42)
--- NOTE | 2019-09-29 01:20 | NUR ---
N/V Patient complains of nausea and began spitting up minimum amount of brown emesis. Emesis bag provided to patient, patient cleansed. Zofran not due at this time, will administer when available. Will continue to monitor.
[2019-09-29] MEDS: ONDANSETRON HCL 4 MG/2 ML VIAL IV PRN ×2 (01:55→14:08)
[2019-09-29 05:00] VITALS: BP 150/94
[2019-09-29] MEDS: metroNIDAZOLE 500MG/100ML 100 ML IV SCH ×3 (06:26→21:41)
--- NOTE | 2019-09-29 06:54 | NUR ---
Lab draw Per supervisor laboratory, patient is a hard stick and unable to draw from patient at this time. Lab to try at different time.
[2019-09-29] MEDS: ALBUTEROL SULF HFA 90MCG INH 200DOSE IN SCH ×3 (07:30→21:28)
--- NOTE | 2019-09-29 07:30 | NUR ---
Respiratory note: MDI NOT AVAILABLE. PHARMACY WILL BE CONTACTED WHEN COVID RESULTS ARE AVAILABLE. HR 64, RR 14, SPO2 98% RA, BS CLEAR AND DIMINISHED. NO SIGNS OR SYMPTOMS OF RESPIRATORY DISTRESS NOTED. WILL CONTINUE TO MONITOR ORDERED.
[2019-09-29 08:00] VITALS: BP 160/107
[2019-09-29] MEDS: LORazepam 2MG/ML-1ML VIAL IV PRN ×2 (08:10→16:07)
[2019-09-29] MEDS: CHOLECALCIFEROL (VITD3) 2,000 UNIT CAP PO SCH (09:20)
[2019-09-29] MEDS: ZINC SULFATE 220mg CAP or TAB PO SCH (09:20)
[2019-09-29] MEDS: ASCORBIC ACID 1,000 MG TAB PO SCH (09:20)
[2019-09-29] MEDS: PANTOPRAZOLE 40 MG/10 ML VIAL INJ IV SCH (09:54)
[2019-09-29 13:00] VITALS: BP 163/107
[2019-09-29 14:16] LABS: Basophils # (auto) 0 10 ^3/uL (0-0.2); Basophils % (auto) 0.1 % (0.0-2.0); Eosinophils # (auto) 0 10 ^3/uL (0-0.8); Monocytes # (auto) 0.5 10 ^3/uL (0-1.3); Monocytes % (auto) 3.9 % (0.0-12.0)
[2019-09-29 14:17] LABS: Hemoglobin 12.1 g/dL (12.2-16.2); Lymphocytes # (auto) 1.5 10 ^3/uL (0.4-5.4); Lymphocytes % (auto) 11.5 % (10.0-50.0); Mean Corpuscular Hemoglobin 26.5 pg (28.0-32.0); Mean Corpuscular Hgb Conc. 32.8 g/dL (32.0-36.0); Mean Corpuscular Volume 80.9 fL (80.0-100.0); Neutrophils % (auto) 84.5 % (37.0-80.0); Platelet Count (auto) 337 10^3/uL (140-450); Red Blood Cells 4.57 10^6/uL (4.0-5.20)
[2019-09-29 14:39] LABS: Albumin 2.7 g/dL (3.4-5.0); BUN/Creatinine Ratio 20.4; Calcium 7.7 mg/dL (8.5-10.1); Potassium 3.6 mmol/L (3.5-5.1)
[2019-09-29 14:42] LABS: Bilirubin, Total 0.6 mg/dL (0.2-1.0); Total Protein 6.9 g/dL (6.4-8.2)
--- NOTE | 2019-09-29 15:00 | NUR ---
Respiratory note: MEDICATION HELD AWAITING PENDING COVID RESULTS. NO RESPIRATORY DISTRESS NOTED AT THIS TIME. HR 103, RR 16. SPO2 96%RN VONNIE AWARE OF HELD MEDICATION.
--- NOTE | 2019-09-29 15:00 | NUR ---
Nutrition Assessment/Consult Notes Please refer to link for full assessment notes. Note: kg wt adjusted for rt arm amp Est Energy needs: 0076-6994 kcals (25-30 kcal/60.8kgBW) Est Protein needs: 49-61 gms/day (0.8-1.0 gm/60.8kgBW) Will continue to monitor and reassess prn. Addendum: 09/29/19 at [address] Amended: Links added.
[2019-09-29 16:55] VITALS: BP 160/98
--- NOTE | 2019-09-29 19:00 | NUR ---
Opening Shift Note Assumed care of patient, orientated and alert. No S/S of distress/SOB or pain. Patient resting comfortably with eyes closed. Safety measures in place bed in lowest position, side rails up x2, and call light within reach. Instructed on POC and to call for assist PRN, will continue to monitor for changes Q1hr and PRN.
--- NOTE | 2019-09-29 20:54 | NUR ---
Respiratory note: MDI HELD AT THIS TIME AWAITING COVID RESULTS, ASSESSED PT AT THIS TIME, NO DISTRESS NOTED. PULSE OX 100% ON RA, HR 119, RR 18
--- NOTE | 2019-09-29 22:46 | NUR ---
Patient COVID test resulted negative. Patient transferring to room 297 A. Report given to Carmen BUI.
--- NOTE | 2019-09-29 23:32 | NUR ---
Received patient from room 239. Transferred via WC to room 297-A. Patient is A&O x4, on RA. No s/s of distress noted. Reports 9/10 abdominal pain. Informed patient that pain medication is not yet due at this time. Patient verbalizes understanding. PIV in left hand is intact and patent. Flushed with 10ml NS. Bed is in low locked position with side rails up x2. Call light is within reach and patient encouraged to call for assistance when needed.
[2019-09-30] MEDS: ACCU-CHEK COMFORT CURVE STRIP VI SCH ×4 (00:36→18:00)
[2019-09-30] MEDS: InsuLIN REG 1unit/0.01ml Soln (100units/ml) SC SCH ×4 (00:43→18:00)
[2019-09-30] MEDS: LORazepam 2MG/ML-1ML VIAL IV PRN ×3 (00:43→18:43)
[2019-09-30] MEDS ORDERED: INSULIN LANTUS (GLARGINE) 1 /0.01ml (100units/ml) SC ONE (01:45)
[2019-09-30] MEDS: MORPHINE SULF INJ 2 MG/ML SYRINGE 1ML IV PRN ×4 (02:50→22:44)
[2019-09-30] MEDS: ONDANSETRON HCL 4 MG/2 ML VIAL IV PRN ×4 (02:50→22:45)
[2019-09-30 05:52] VITALS: BP 107/81
[2019-09-30] MEDS: metroNIDAZOLE 500MG/100ML 100 ML IV SCH ×3 (05:55→22:42)
--- NOTE | 2019-09-30 07:05 | NUR ---
Opening Shift Note Assumed care of patient, awake and alert. No S/S of distress/SOB or pain. Instructed on POC and to call for assist PRN, will continue to monitor for changes Q1hr and PRN.
[2019-09-30 09:00] VITALS: BP 125/86
[2019-09-30] MEDS: CHOLECALCIFEROL (VITD3) 2,000 UNIT CAP PO SCH (09:19)
[2019-09-30] MEDS: ASCORBIC ACID 1,000 MG TAB PO SCH (09:19)
[2019-09-30] MEDS: DOXYCYCLINE 100MG/250ML 250 ML IV SCH (09:19)
[2019-09-30] MEDS: PANTOPRAZOLE 40 MG/10 ML VIAL INJ IV SCH (09:19)
[2019-09-30] MEDS: ZINC SULFATE 220mg CAP or TAB PO SCH (09:19)
[2019-09-30] MEDS ORDERED: ASCORBIC ACID 500 MG TAB PO SCH (10:54)
[2019-09-30 13:00] VITALS: BP 104/73
[2019-09-30] MEDS: SUCRALFATE 1 GM/10 ML ORAL SUSP PO SCH ×2 (16:10→22:43)
[2019-09-30 17:00] VITALS: BP 150/90
--- NOTE | 2019-09-30 19:35 | NUR ---
Opening Shift Note Assumed care of patient AA/Ox4. Respirations even and unlabored. No S/S of distress/SOB or pain. Bed in lowest locked position, safety precautions in place, call light within reach and reinforced safety concerns with patient in regards to ambulation. Instructed on POC and to call for assist PRN, will continue to monitor for changes Q1hr and PRN. Signed: 10/01/19 at 041 by TARAH CASH <Co-Signature Required> Co-Signed: 10/01/19 at 041 by DOROTA HERNANDEZ RN RN
[2019-09-30 21:46] VITALS: BP 152/98
--- NOTE | 2019-10-01 00:35 | NUR ---
IV insertion IV access obtained, via clean sterile technique by inserting 20 gauge catheter at Left AC after 2 attempt(s). IV secured properly. No trauma to site. Patient tolerated well. Signed: 10/01/19 at 0414 by TARAH CASH <Co-Signature Required> Co-Signed: 10/01/19 at 4 by DOROTA HERNANDEZ RN RN
[2019-10-01] MEDS: MORPHINE SULF INJ 2 MG/ML SYRINGE 1ML IV PRN ×4 (03:25→20:33)
[2019-10-01 05:53] VITALS: BP 143/87
[2019-10-01] MEDS: ACCU-CHEK COMFORT CURVE STRIP VI SCH ×5 (06:11→23:50)
[2019-10-01] MEDS: metroNIDAZOLE 500MG/100ML 100 ML IV SCH ×3 (06:11→21:41)
[2019-10-01] MEDS: LORazepam 2MG/ML-1ML VIAL IV PRN ×3 (06:14→22:35)
[2019-10-01] MEDS: InsuLIN REG 1unit/0.01ml Soln (100units/ml) SC SCH ×5 (06:14→23:56)
[2019-10-01] MEDS: SUCRALFATE 1 GM/10 ML ORAL SUSP PO SCH ×4 (06:19→21:41)
--- NOTE | 2019-10-01 07:30 | NUR ---
Opening Shift Note Assumed care of patient, who is alert and oriented x4. Respirations are even an unlabored. No S/S of distress/SOB or pain. Bed is low, locked with 2x side rails up. Call light is within reach. Instructed on POC and to call for assist PRN, will continue to monitor for changes Q1hr and PRN.
[2019-10-01 09:11] VITALS: BP 136/86
[2019-10-01] MEDS: PANTOPRAZOLE 40 MG/10 ML VIAL INJ IV SCH (09:32)
[2019-10-01 12:34] VITALS: BP 126/83
--- NOTE | 2019-10-01 16:37 | NUR ---
Nutrition Followup Notes Pt wt is 57.7 kg. Unable to speak to pt d/e pt was sleeping when rounded this morning. Pt is with a Full Liquid diet, appetite is poor aeb ave 33% PO intake over 3 meals per RN doc. Pt withh no noted distress per RN doc. Will continue to monitor PO status, skin status, pertinent labs and weight trends. Will f/u in 3-5 days. Note: kg wt adjusted for rt arm amp Est Energy needs: 7109-4941 kcals (25-30 kcal/60.8kgBW) Est Protein needs: 49-61 gms/day (0.8-1.0 gm/60.8kgBW) Will continue to monitor and reassess prn. LABS: Gluc 366 H, Alb 2.7 L GI: Pt with BM every 2-4 days per RN doc BS: 19 low risk. Refer to wound assessment report for full details. PES: 1) Increased nutrient needs r/t pt with no PO intake aeb pt is NPO 2) Altered nutrition related lab values r/t current/chronic medical condition aeb hyperglycemia, mod hypoalbuminemia Comments Will continue to monitor PO status, skin status, pertinent labs and weight trends. Will f/u in 3-5 days. 1) Continue to carefully monitor pt NPO status 2) Gradually advance pt to oral CCHO 60g diet when medically feasible and as tolerated 3) Refer pt to RD/CDE for nutrition education upon D/C 4) Continue current plan of care
[2019-10-01 16:56] VITALS: BP 134/77
[2019-10-01] MEDS: ONDANSETRON HCL 4 MG/2 ML VIAL IV PRN (20:33)
[2019-10-01 22:00] VITALS: BP 124/75
[2019-10-02] MEDS: MORPHINE SULF INJ 2 MG/ML SYRINGE 1ML IV PRN ×4 (01:20→14:43)
--- NOTE | 2019-10-02 01:56 | NUR ---
1900. 10/01/19. REPORT OBTAINED ON PATIENT. ASSUMED CARE OF PATIENT. 1999. PATIENT SEEN. LYING ON HER BED FACING THE LEFT SIDE. COMPLAINED OF ABDOMINAL PAIN AND NAUSEA. BUT NO VOMITING. 2032. MEDICATED FOR PAIN. 2234. ATIVAN IVEN PO FOR ANXIETY. 0000. SLEEPING. 0110. WAKES UP AND COMPLAINED OF ABDOMINAL PAIN. 0115. DRESSING TO IV SITE. 0120. MEDICATED FOR PAIN. 0200. SLEEPING AT THIS TIME
[2019-10-02] MEDS: HYDROcodone-ACET 5/325MG TAB PO PRN (03:28)
[2019-10-02 05:07] VITALS: BP 139/83
[2019-10-02] MEDS: metroNIDAZOLE 500MG/100ML 100 ML IV SCH ×2 (05:49→13:32)
[2019-10-02] MEDS: InsuLIN REG 1unit/0.01ml Soln (100units/ml) SC SCH ×3 (05:50→18:00)
[2019-10-02] MEDS: ACCU-CHEK COMFORT CURVE STRIP VI SCH ×3 (05:50→18:00)
[2019-10-02] MEDS: SUCRALFATE 1 GM/10 ML ORAL SUSP PO SCH ×3 (05:51→16:52)
[2019-10-02 06:54] LABS: Basophils # (auto) 0 10 ^3/uL (0-0.2); Basophils % (auto) 0.3 % (0.0-2.0); Eosinophils # (auto) 0.2 10 ^3/uL (0-0.8); Eosinophils % (auto) 2.4 % (0.0-7.0); Hematocrit 32.7 % (36.0-46.0); Lymphocytes # (auto) 3.3 10 ^3/uL (0.4-5.4); Lymphocytes % (auto) 43.5 % (10.0-50.0); Mean Corpuscular Hemoglobin 27.2 pg (28.0-32.0); Mean Corpuscular Hgb Conc. 33.8 g/dL (32.0-36.0); Mean Corpuscular Volume 80.7 fL (80.0-100.0); Monocytes # (auto) 0.7 10 ^3/uL (0-1.3); Monocytes % (auto) 8.8 % (0.0-12.0); Neutrophils # (auto) 3.4 10 ^3/uL (1.6-8.6); Nucleated Red Blood Cells % 0.1 %; Platelet Count (auto) 320 10^3/uL (140-450); Red Blood Cells 4.05 10^6/uL (4.0-5.20); Red Cell Distribution Width 14.8 % (11.8-14.3); White Blood Cell 7.6 10^3/uL (4.4-10.8)
[2019-10-02 07:09] LABS: Albumin 2.6 g/dL (3.4-5.0); Calcium 7.8 mg/dL (8.5-10.1)
[2019-10-02 07:14] LABS: BUN/Creatinine Ratio 18.6; Bilirubin, Total 0.4 mg/dL (0.2-1.0); Total Protein 5.9 g/dL (6.4-8.2)
[2019-10-02 07:49] LABS: Potassium 2.7 mmol/L (3.5-5.1)
--- NOTE | 2019-10-02 07:53 | NUR ---
Paging Dr. Pardo Received a call from lab for a critical potassium of 2.[address] Pardo for orders.
--- NOTE | 2019-10-02 08:01 | NUR ---
New orders Received new orders for potassium replacement as well as orders to advance diet. Per Dr. Pardo, may advance diet as tolerated. Will carry out orders.
[2019-10-02] MEDS: LORazepam 2MG/ML-1ML VIAL IV PRN ×2 (08:09→16:53)
[2019-10-02] MEDS ORDERED: POTASSIUM CHLORIDE 20 MEQ, LIDOCAINE 1% (LOCAL ANESTH.) 2 ML in SODIUM CHL 0.9% 100 ML IV ONE (08:30)
[2019-10-02] MEDS ORDERED: POTASSIUM CHL 20 Meq TABLET PO ONE ×2 (08:30→12:00)
--- NOTE | 2019-10-02 08:45 | NUR ---
Called pharmacy [facility] to send up IV potassium in 15 minutes.
[2019-10-02] MEDS: PANTOPRAZOLE 40 MG/10 ML VIAL INJ IV SCH (09:10)
[2019-10-02 09:28] VITALS: BP 130/90
[2019-10-02 12:57] VITALS: BP 147/90
[2019-10-02 16:33] VITALS: BP 146/102
--- NOTE | 2019-10-02 18:33 | NUR ---
Discharge instructions given as ordered. Encourage to follow up with PMD as instructed. All questions and concerns addressed. Patient verbalized understanding. IV removed with catheter intact, pressure dressing applied. Telemetry unit returned to ICU. Patient taken to vehicle via wheelchair with all personal belongings, accompanied by staff. No distress noted at time of departure.
== END 2019-10-02 18:32 | disposition home or self-care (01) | DRG 720 ==
LOC: ER 20:18 → TELE 20:19 → TELE-EAST 09-28 22:27 → TELE-WESTW 09-29 23:32
PROVIDERS: ADMIT Nurse Practitioner Family; ATTEND Internal Medicine
DX: A41.9 Sepsis, unspecified organism (principal); J18.9 Pneumonia, unspecified organism; K29.70 Gastritis, unspecified, without bleeding; K80.20 Calculus of gallbladder without cholecystitis without obstruction; J96.00 Acute respiratory failure, unspecified whether with hypoxia or hypercapnia; N17.0 Acute kidney failure with tubular necrosis; F11.20 Opioid dependence, uncomplicated; F41.9 Anxiety disorder, unspecified; J98.11 Atelectasis; E87.3 Alkalosis; K82.8 Other specified diseases of gallbladder; N32.0 Bladder-neck obstruction; E10.65 Type 1 diabetes mellitus with hyperglycemia; N31.9 Neuromuscular dysfunction of bladder, unspecified; E87.8 Other disorders of electrolyte and fluid balance, not elsewhere classified; Z79.4 Long term (current) use of insulin; Z82.49 Family history of ischemic heart disease and other diseases of the circulatory system; Z83.3 Family history of diabetes mellitus; Z88.0 Allergy status to penicillin; Z20.828 Contact with and (suspected) exposure to other viral communicable diseases
CPT/HCPCS: 36415; 36600; 71045; 74176; 76705; 80053; 80307; 81001; 82010; 82728; 82805; 82962; 83605; 83615; 83690; 83735; 84132; 84443; 84702; 85025; 85379; 86141; 87040; 87086; 94760; 96365; 96366; 96367; 96368; 96372; 96375; 96376; C9113; G0378; J1100; J1815; J1956; J2001; J2405; J3490

== ENCOUNTER 2020-07-19 22:16 | Emergency (ER) | payer MEDICAID ==
[~2020-07-19] VITALS: Ht 170.2 cm; Wt 59.0 kg
[2020-07-19 22:23] VITALS: BP 129/83
== END 2020-07-19 22:24 | disposition left against medical advice (07) ==
LOC: ER 22:16
DX: K92.0 Hematemesis (principal); Z53.21 Procedure and treatment not carried out due to patient leaving prior to being seen by health care provider

== ENCOUNTER 2020-08-17 08:02 | Emergency (ER) | payer MEDICAID ==
[~2020-08-17] VITALS: Ht 172.7 cm; Wt 61.2 kg
[2020-08-17 08:10] VITALS: BP 146/102
[2020-08-17 09:17] LABS: Basophils # (auto) 0 10 ^3/uL (0-0.2); Basophils % (auto) 0.1 % (0.0-2.0); Eosinophils # (auto) 0 10 ^3/uL (0-0.8); Hematocrit 35.6 % (36.0-46.0); Hemoglobin 11.6 g/dL (12.2-16.2); Lymphocytes % (auto) 7.8 % (10.0-50.0); Mean Corpuscular Hemoglobin 25.7 pg (28.0-32.0); Mean Corpuscular Hgb Conc. 32.6 g/dL (32.0-36.0); Mean Corpuscular Volume 78.8 fL (80.0-100.0); Monocytes # (auto) 0.3 10 ^3/uL (0-1.3); Monocytes % (auto) 2.5 % (0.0-12.0); Neutrophils # (auto) 11.3 10 ^3/uL (1.6-8.6); Neutrophils % (auto) 89.6 % (37.0-80.0); Nucleated Red Blood Cells % 0.1 %; Platelet Count (auto) 331 10^3/uL (140-450); Red Blood Cells 4.52 10^6/uL (4.0-5.20); White Blood Cell 12.7 10^3/uL (4.4-10.8)
[2020-08-17 09:41] LABS: Potassium 4.5 mmol/L (3.5-5.1); Sodium 135 mmol/L (136-145)
[2020-08-17 09:42] LABS: Alanine Aminotransferase 32 U/L (13-56); Albumin 3.5 g/dL (3.4-5.0); Alkaline Phosphatase 95 U/L (45-117); Anion Gap 18 (5-15); Aspartate Aminotransferase 22 U/L (15-37); BUN/Creatinine Ratio 16.8; Bilirubin, Total 0.8 mg/dL (0.2-1.0); Blood Urea Nitrogen 23 mg/dL (7-18); Carbon Dioxide 18 mmol/L (21-32); Chloride 99 mmol/L (98-107); GFR African American 57 mL/min; GFR Non-African American 47 mL/min; Glucose 359 mg/dL (74-106); Total Protein 8.6 g/dL (6.4-8.2)
== END 2020-08-17 13:18 | disposition left against medical advice (07) ==
LOC: ER 08:02
DX: R11.2 Nausea with vomiting, unspecified (principal); R94.31 Abnormal electrocardiogram [ECG] [EKG]; Z53.21 Procedure and treatment not carried out due to patient leaving prior to being seen by health care provider
CPT/HCPCS: 36415; 80053; 84702; 85025; 93005

== ENCOUNTER 2020-08-20 14:58 | Inpatient (IN) | payer MEDICAID ==
[~2020-08-20] VITALS: Ht 172.7 cm; Wt 63.5 kg
[2020-08-20] MEDS ORDERED: ONDANSETRON HCL 4 MG/2 ML VIAL IV ONE (16:00)
[2020-08-20] MEDS ORDERED: SODIUM CHLORIDE 0.9% 1,000 ML IVB ONE (16:00)
[2020-08-20] MEDS ORDERED: LORazepam 2MG/ML-1ML VIAL IV ONE (16:00)
[2020-08-20 16:09] LABS: Basophils # (auto) 0 10 ^3/uL (0-0.2); Basophils % (auto) 0.2 % (0.0-2.0); Eosinophils # (auto) 0 10 ^3/uL (0-0.8); Lymphocytes # (auto) 1.4 10 ^3/uL (0.4-5.4); Mean Corpuscular Hemoglobin 26.1 pg (28.0-32.0)
[2020-08-20 16:11] LABS: Hematocrit 41.8 % (36.0-46.0); Hemoglobin 13.2 g/dL (12.2-16.2); Lymphocytes % (auto) 10.2 % (10.0-50.0); Mean Corpuscular Hgb Conc. 31.6 g/dL (32.0-36.0); Mean Corpuscular Volume 82.6 fL (80.0-100.0); Monocytes # (auto) 0.6 10 ^3/uL (0-1.3); Monocytes % (auto) 4.2 % (0.0-12.0); Neutrophils # (auto) 11.7 10 ^3/uL (1.6-8.6); Neutrophils % (auto) 85.4 % (37.0-80.0); Nucleated Red Blood Cells % 0.1 %; Platelet Count (auto) 475 10^3/uL (140-450); Red Blood Cells 5.06 10^6/uL (4.0-5.20); Red Cell Distribution Width 17.6 % (11.8-14.3); White Blood Cell 13.7 10^3/uL (4.4-10.8)
[2020-08-20 16:12] LABS: Albumin 3.2 g/dL (3.4-5.0); Calcium 8.8 mg/dL (8.5-10.1); Magnesium 3.2 mg/dL (1.6-2.6); Potassium 4.2 mmol/L (3.5-5.1)
[2020-08-20 16:14] LABS: Bilirubin, Total 0.7 mg/dL (0.2-1.0); Phosphorus 5.7 mg/dL (2.5-4.90); Total Protein 8.1 g/dL (6.4-8.2)
[2020-08-20 16:20] LABS: BUN/Creatinine Ratio 32.9
[2020-08-20] MEDS ORDERED: DEXTROSE (50%) 50ML SYRG IV PRN (17:00)
[2020-08-20] MEDS ORDERED: InsuLIN REG 1unit/0.01ml Soln (100units/ml) IV ONE ×2 (17:00)
[2020-08-20] MEDS ORDERED: METHADONE HCL 10 MG TAB PO ONE (17:00)
[2020-08-20] MEDS ORDERED: InsuLIN R (HUMAN) 100 UNITS in SODIUM CHL 0.9% 99 ML IV SCH ×2 (17:00→21:15)
[2020-08-20 17:48] LABS: Urine Bacteria MANY /hpf (None Seen); Urine Blood 1+ /uL (Negative); Urine Budding Yeast MODERATE /hpf (None Seen); Urine Hyaline Cast FEW /lpf (0 - 2); Urine Mucus FEW (None Seen); Urine Specific Gravity 1.029 (1.001-1.035); Urine WBC 114 /hpf (0 - 5); Urine WBC Clumps PRESENT /hpf (None Seen)
[2020-08-20 17:56] LABS: Amphetamine Screen, Urine NEGATIVE (NEGATIVE); Barbiturate Scree,Urine NEGATIVE (NEGATIVE); Benzodiazephine Screen, Urine NEGATIVE (NEGATIVE); Cannabinoid Screen, Urine POSITIVE (NEGATIVE); Cocaine Screen, Urine NEGATIVE (NEGATIVE); Opiate Scree,Urine NEGATIVE (NEGATIVE); Phencyclidine Screen, Urine NEGATIVE (NEGATIVE)
[2020-08-20] MEDS: ACCU-CHEK COMFORT CURVE STRIP VI SCH ×4 (18:34→22:30)
[2020-08-20] MEDS ORDERED: ONDANSETRON HCL 4 MG/2 ML VIAL IV PRN (21:00)
[2020-08-20] MEDS ORDERED: MORPHINE SULF INJ 2 MG/ML SYRINGE 1ML IV PRN (21:00)
[2020-08-20] MEDS ORDERED: NITROGLYCERIN 0.4 MG SL TAB SL PRN (21:00)
[2020-08-21] MEDS: ACCU-CHEK COMFORT CURVE STRIP VI SCH ×8 (00:31→17:56)
[2020-08-21] MEDS: D5W/SOD CHL 0.45% 1,000 ML IV SCH ×2 (01:20→03:22)
[2020-08-21 01:28] LABS: Anion Gap 9 (5-15); Blood Urea Nitrogen 63 mg/dL (7-18); Calcium 7.9 mg/dL (8.5-10.1); Carbon Dioxide 24 mmol/L (21-32); Chloride 115 mmol/L (98-107); GFR African American 39 mL/min; GFR Non-African American 32 mL/min; Glucose 171 mg/dL (74-106); Potassium 5.1 mmol/L (3.5-5.1); Sodium 148 mmol/L (136-145)
[2020-08-21] MEDS ORDERED: SODIUM CHLORIDE 0.9% 1,000 ML IV SCH (03:00)
[2020-08-21 05:34] LABS: Basophils # (auto) 0 10 ^3/uL (0-0.2); Basophils % (auto) 0.2 % (0.0-2.0); Eosinophils # (auto) 0 10 ^3/uL (0-0.8)
[2020-08-21 05:35] LABS: Hemoglobin 11.9 g/dL (12.2-16.2); Lymphocytes # (auto) 1.6 10 ^3/uL (0.4-5.4); Lymphocytes % (auto) 13.4 % (10.0-50.0); Mean Corpuscular Hemoglobin 26.6 pg (28.0-32.0); Mean Corpuscular Hgb Conc. 33.1 g/dL (32.0-36.0); Mean Corpuscular Volume 80.6 fL (80.0-100.0); Monocytes # (auto) 0.8 10 ^3/uL (0-1.3); Monocytes % (auto) 7.3 % (0.0-12.0); Neutrophils # (auto) 9.2 10 ^3/uL (1.6-8.6); Neutrophils % (auto) 79.1 % (37.0-80.0); Platelet Count (auto) 380 10^3/uL (140-450); Red Blood Cells 4.46 10^6/uL (4.0-5.20); Red Cell Distribution Width 17.3 % (11.8-14.3); White Blood Cell 11.6 10^3/uL (4.4-10.8)
[2020-08-21 05:36] LABS: BUN/Creatinine Ratio 35.9; Calcium 7.7 mg/dL (8.5-10.1); Potassium 3.9 mmol/L (3.5-5.1)
[2020-08-21] MEDS ORDERED: DEXTROSE (50%) 50ML SYRG IV PRN (06:30)
[2020-08-21] MEDS ORDERED: MORPHINE SULF INJ 2 MG/ML SYRINGE 1ML IV PRN (06:30)
[2020-08-21] MEDS: InsuLIN REG 1unit/0.01ml Soln (100units/ml) SC SCH ×3 (07:00→17:58)
[2020-08-21] MEDS ORDERED: cefTRIAXone 1GM/50ML D5W 50 ML IV SCH (09:00)
[2020-08-21 10:24] LABS: BUN/Creatinine Ratio 34.9; Calcium 8.3 mg/dL (8.5-10.1)
[2020-08-21 13:00] VITALS: BP 149/99
[2020-08-21] MEDS ORDERED: LORA0.5T20 PO (13:06)
[2020-08-21] MEDS ORDERED: ZOLP10TA PO (13:06)
[2020-08-21] MEDS ORDERED: DOCU100T15 PO (13:07)
[2020-08-21] MEDS ORDERED: DOCUSATE SOD 100 MG CAP PO PRN (13:30)
[2020-08-21] MEDS ORDERED: LORazepam 0.5 MG TAB PO PRN (13:30)
[2020-08-21] MEDS ORDERED: ONDANSETRON HCL 4 MG/2 ML VIAL IV PRN (13:30)
[2020-08-21 13:38] VITALS: BP 149/99
[2020-08-21] MEDS ORDERED: LEVO500T31 PO (13:49)
[2020-08-21 14:07] LABS: BUN/Creatinine Ratio 35.3; Calcium 8.1 mg/dL (8.5-10.1); Potassium 3.9 mmol/L (3.5-5.1)
[2020-08-21 17:00] VITALS: BP 142/96
[2020-08-21] MEDS ORDERED: METHADONE HCL 10 MG TAB PO ONE (17:45)
[2020-08-21] MEDS ORDERED: GABAPENTIN 300 MG CAP PO SCH (18:00)
[2020-08-21] MEDS ORDERED: InsuLIN REG 1unit/0.01ml Soln (100units/ml) SC SCH (22:00)
[2020-08-21] MEDS ORDERED: INSULIN LANTUS (GLARGINE) 1 /0.01ml (100units/ml) SC SCH (22:00)
== END 2020-08-21 20:00 | disposition home health service (06) | DRG 420 ==
LOC: EDBD 14:58 → ER 14:58 → TELE 20:56 → TELE-WESTW 08-21 08:35
PROVIDERS: ADMIT Hospitalist; ATTEND Hospitalist
DX: E11.10 Type 2 diabetes mellitus with ketoacidosis without coma (principal); N17.9 Acute kidney failure, unspecified; N18.4 Chronic kidney disease, stage 4 (severe); F11.20 Opioid dependence, uncomplicated; E44.1 Mild protein-calorie malnutrition; E11.21 Type 2 diabetes mellitus with diabetic nephropathy; Z20.822 Contact with and (suspected) exposure to COVID-19; E11.22 Type 2 diabetes mellitus with diabetic chronic kidney disease; F12.90 Cannabis use, unspecified, uncomplicated; F32.9 Major depressive disorder, single episode, unspecified; F41.9 Anxiety disorder, unspecified; G89.4 Chronic pain syndrome; N39.0 Urinary tract infection, site not specified; Z82.49 Family history of ischemic heart disease and other diseases of the circulatory system; Z83.3 Family history of diabetes mellitus; Z91.19 Patient's noncompliance with other medical treatment and regimen; Z88.0 Allergy status to penicillin; Z79.899 Other long term (current) drug therapy
CPT/HCPCS: 36415; 36600; 71045; 80048; 80053; 80307; 81001; 81025; 82010; 82805; 82962; 83690; 83735; 83930; 84100; 84443; 85025; 85049; 87081; 87426; 93005; 96361; 96365; 96375; 99291; G0378; J0696; J1815; J2405

== ENCOUNTER 2021-04-06 20:33 | Emergency (ER) | payer MEDICAID ==
[~2021-04-06] VITALS: Ht 170.2 cm; Wt 62.1 kg
[2021-04-06 20:33] VITALS: BP 176/104
[~2021-04-06 20:33] MED LIST changes: +DOCU100T15 PO; +LEVO500T31 PO; +LORA0.5T20 PO; +ZOLP10TA PO
[2021-04-06 22:30] LABS: Urine Bacteria NONE SEEN /hpf (None Seen); Urine Blood 2+ /uL (Negative); Urine Hyaline Cast FEW /lpf (0 - 2); Urine Mucus FEW (None Seen); Urine Specific Gravity 1.024 (1.001-1.035); Urine WBC 7 /hpf (0 - 5)
[2021-04-06 23:59] LABS: Basophils # (auto) 0 10 ^3/uL (0-0.2); Eosinophils # (auto) 0 10 ^3/uL (0-0.8); Lymphocytes # (auto) 0.7 10 ^3/uL (0.4-5.4); Mean Corpuscular Volume 68.5 fL (80.0-100.0); Monocytes # (auto) 0.2 10 ^3/uL (0-1.3); White Blood Cell 9.2 10^3/uL (4.4-10.8)
[2021-04-07 00:03] LABS: Basophils % (auto) 0.2 % (0.0-2.0); Hematocrit 35.6 % (36.0-46.0); Hemoglobin 11.3 g/dL (12.2-16.2); Lymphocytes % (auto) 7.4 % (10.0-50.0); Mean Corpuscular Hemoglobin 21.6 pg (28.0-32.0); Mean Corpuscular Hgb Conc. 31.6 g/dL (32.0-36.0); Neutrophils # (auto) 8.4 10 ^3/uL (1.6-8.6); Neutrophils % (auto) 90.4 % (37.0-80.0); Nucleated Red Blood Cells % 0.1 %
[2021-04-07 00:04] LABS: Red Cell Distribution Width 20.2 % (11.8-14.3)
[2021-04-07 00:23] LABS: Albumin 3.3 g/dL (3.4-5.0); BUN/Creatinine Ratio 19.2; Calcium 8.9 mg/dL (8.5-10.1); Potassium 4.1 mmol/L (3.5-5.1)
[2021-04-07 00:25] LABS: Bilirubin, Total 0.7 mg/dL (0.2-1.0); Total Protein 8.1 g/dL (6.4-8.2)
== END 2021-04-07 08:26 | disposition left against medical advice (07) ==
LOC: ER 20:36
DX: R10.13 Epigastric pain (principal); R19.7 Diarrhea, unspecified; R11.2 Nausea with vomiting, unspecified; E11.9 Type 2 diabetes mellitus without complications; Z90.49 Acquired absence of other specified parts of digestive tract; Z79.4 Long term (current) use of insulin; Z79.2 Long term (current) use of antibiotics; Z79.899 Other long term (current) drug therapy; Z88.0 Allergy status to penicillin
CPT/HCPCS: 36415; 80053; 81001; 84702; 85025

== ENCOUNTER 2021-04-08 16:43 | Inpatient (IN) | payer MEDICAID ==
[~2021-04-08] VITALS: Ht 152.4 cm; Wt 26.4 kg
[2021-04-08] MEDS ORDERED: ONDANSETRON HCL 4 MG/2 ML VIAL IV ONE ×2 (17:15→20:45)
[2021-04-08] MEDS ORDERED: MORPHINE SULFATE 4 MG/ML SYR/VIAL IV ONE (17:15)
[2021-04-08] MEDS ORDERED: SODIUM CHLORIDE 0.9% 1,000 ML IVB ONE (17:15)
[2021-04-08] MEDS ORDERED: PANTOPRAZOLE 40 MG/10 ML VIAL INJ IV ONE (17:15)
[2021-04-08 18:33] LABS: Basophils # (auto) 0 10 ^3/uL (0-0.2); Basophils % (auto) 0.2 % (0.0-2.0); Eosinophils # (auto) 0 10 ^3/uL (0-0.8); Hemoglobin 10.2 g/dL (12.2-16.2); Red Blood Cells 4.75 10^6/uL (4.0-5.20)
[2021-04-08 18:35] LABS: Lymphocytes # (auto) 0.9 10 ^3/uL (0.4-5.4); Lymphocytes % (auto) 7.1 % (10.0-50.0); Mean Corpuscular Hemoglobin 21.6 pg (28.0-32.0); Mean Corpuscular Volume 67.3 fL (80.0-100.0); Monocytes # (auto) 0.8 10 ^3/uL (0-1.3); Monocytes % (auto) 6.6 % (0.0-12.0); Neutrophils % (auto) 86.1 % (37.0-80.0); Nucleated Red Blood Cells % 0.1 %; White Blood Cell 12.8 10^3/uL (4.4-10.8)
[2021-04-08 18:41] LABS: Albumin 3.1 g/dL (3.4-5.0); Calcium 8.7 mg/dL (8.5-10.1); Potassium 3.6 mmol/L (3.5-5.1)
[2021-04-08 18:45] LABS: BUN/Creatinine Ratio 25.5; Bilirubin, Total 0.6 mg/dL (0.2-1.0); Total Protein 7.4 g/dL (6.4-8.2)
[2021-04-08] MEDS ORDERED: cloNIDine HCL 0.1 MG TAB PO ONE (19:30)
[2021-04-08 20:07] LABS: Urine Bacteria FEW /hpf (None Seen); Urine Blood 2+ /uL (Negative); Urine Hyaline Cast FEW /lpf (0 - 2); Urine Mucus FEW (None Seen); Urine Specific Gravity 1.028 (1.001-1.035); Urine WBC <1 /hpf (0 - 5)
[2021-04-08] MEDS ORDERED: SODIUM CHLORIDE 0.9% 500 ML IV ONE (20:45)
[2021-04-08] MEDS ORDERED: HYDROmorphone HCL 2 MG/ML VL IV ONE (20:45)
[2021-04-08 21:14] LABS: Amphetamine Screen, Urine NEGATIVE (NEGATIVE); Barbiturate Scree,Urine NEGATIVE (NEGATIVE); Benzodiazephine Screen, Urine NEGATIVE (NEGATIVE); Cannabinoid Screen, Urine POSITIVE (NEGATIVE); Cocaine Screen, Urine NEGATIVE (NEGATIVE); Opiate Scree,Urine NEGATIVE (NEGATIVE); Phencyclidine Screen, Urine NEGATIVE (NEGATIVE)
[2021-04-08] MEDS ORDERED: ACETAMINOPHEN 325 MG TAB PO PRN (23:15)
[2021-04-08] MEDS ORDERED: ONDANSETRON HCL 4 MG/2 ML VIAL IV PRN (23:15)
[2021-04-08] MEDS ORDERED: DEXTROSE (50%) 50ML SYRG IV PRN (23:15)
[2021-04-08] MEDS: MORPHINE SULFATE INJECTION 2 MG/ML SYRG IV PRN (23:55)
[2021-04-09 00:28] LABS: Basophils # (auto) 0 10 ^3/uL (0-0.2); Basophils % (auto) 0.1 % (0.0-2.0); Eosinophils # (auto) 0 10 ^3/uL (0-0.8); Monocytes # (auto) 0.8 10 ^3/uL (0-1.3); Red Blood Cells 4.78 10^6/uL (4.0-5.20)
[2021-04-09 00:29] LABS: Eosinophils % (auto) 0.2 % (0.0-7.0); Hematocrit 33.2 % (36.0-46.0); Hemoglobin 10.3 g/dL (12.2-16.2); Lymphocytes # (auto) 0.9 10 ^3/uL (0.4-5.4); Lymphocytes % (auto) 6.9 % (10.0-50.0); Mean Corpuscular Hemoglobin 21.5 pg (28.0-32.0); Mean Corpuscular Volume 69.4 fL (80.0-100.0); Monocytes % (auto) 6.4 % (0.0-12.0); Neutrophils # (auto) 11.2 10 ^3/uL (1.6-8.6); Neutrophils % (auto) 86.4 % (37.0-80.0); White Blood Cell 12.9 10^3/uL (4.4-10.8)
[2021-04-09 00:34] LABS: Red Cell Distribution Width 20.1 % (11.8-14.3)
[2021-04-09 00:41] LABS: BUN/Creatinine Ratio 29.1; Calcium 8.2 mg/dL (8.5-10.1); Potassium 4.2 mmol/L (3.5-5.1)
[2021-04-09] MEDS: hydrALAZINE HCL 10 MG TAB PO PRN ×4 (00:42→22:01)
[2021-04-09] MEDS: HYDROcodone-ACET 5/325MG TAB PO PRN ×2 (02:23→09:16)
[2021-04-09] MEDS ORDERED: LABETALOL HCL 5 MG/ML 4ML SYRINGE IV ONE (04:15)
[2021-04-09] MEDS ORDERED: LABETALOL HCL 5 MG/ML ML 20ML VIAL IV ONE (05:01)
[2021-04-09] MEDS: InsuLIN REG 1unit/0.01ml Soln (100units/ml) SC SCH ×4 (06:05→21:26)
[2021-04-09] MEDS: ACCU-CHEK COMFORT CURVE STRIP VI SCH ×4 (06:06→21:29)
[2021-04-09] MEDS: MORPHINE SULFATE INJECTION 2 MG/ML SYRG IV PRN ×3 (06:31→21:16)
[2021-04-09 09:00] VITALS: BP 187/93
[2021-04-09] MEDS: LISINOPRIL 5 MG TAB PO SCH (09:15)
[2021-04-09] MEDS: FAMOTIDINE 20 MG TAB PO SCH (09:15)
[2021-04-09 13:00] VITALS: BP 181/72
[2021-04-09 15:59] VITALS: BP 172/92
[2021-04-09 17:00] VITALS: BP 140/77
[2021-04-09] MEDS: SODIUM CHLORIDE 0.9% 1,000 ML IV SCH (17:53)
[2021-04-10] MEDS: SODIUM CHLORIDE 0.9% 1,000 ML IV SCH ×2 (00:35→10:15)
[2021-04-10] MEDS: MORPHINE SULFATE INJECTION 2 MG/ML SYRG IV PRN ×2 (04:22→10:24)
[2021-04-10 05:00] VITALS: BP 169/108
[2021-04-10] MEDS: hydrALAZINE HCL 10 MG TAB PO PRN ×2 (05:10→11:22)
[2021-04-10] MEDS: InsuLIN REG 1unit/0.01ml Soln (100units/ml) SC SCH ×3 (05:50→18:53)
[2021-04-10] MEDS: ACCU-CHEK COMFORT CURVE STRIP VI SCH ×3 (05:52→18:51)
[2021-04-10 07:06] LABS: Chloride 105 mmol/L (98-107); Potassium 4.7 mmol/L (3.5-5.1); Sodium 133 mmol/L (136-145)
[2021-04-10 07:11] LABS: Anion Gap 9 (5-15); BUN/Creatinine Ratio 25.2; Blood Urea Nitrogen 31 mg/dL (7-18); Calcium 7.6 mg/dL (8.5-10.1); Carbon Dioxide 19 mmol/L (21-32); GFR African American 64 mL/min; GFR Non-African American 53 mL/min; Glucose 304 mg/dL (74-106)
[2021-04-10 09:20] VITALS: BP 151/103
[2021-04-10] MEDS ORDERED: METHADONE HCL 10 MG TAB PO SCH (10:00)
[2021-04-10] MEDS: FAMOTIDINE 20 MG TAB PO SCH (10:16)
[2021-04-10] MEDS: LISINOPRIL 5 MG TAB PO SCH (10:19)
[2021-04-10 13:00] VITALS: BP 179/114
[2021-04-10] MEDS ORDERED: CLON0.1T PO (13:26)
[2021-04-10] MEDS ORDERED: AMLO-496 PO (13:26)
[2021-04-10] MEDS ORDERED: cloNIDine HCL 0.1 MG TAB PO ONE (14:15)
[2021-04-10 17:01] VITALS: BP 176/99
[2021-04-10 19:24] VITALS: BP 154/106
[2021-04-10 19:35] VITALS: BP 154/106
[2021-04-10] MEDS ORDERED: amLODIPine BESYLATE 5 MG TAB PO SCH (21:00)
[2021-04-10] MEDS ORDERED: LISINOPRIL 10 MG TAB PO SCH (22:00)
[2021-04-11] MEDS ORDERED: amLODIPine BESYLATE 5 MG TAB PO SCH (10:00)
== END 2021-04-10 21:05 | disposition home health service (06) | DRG 468 ==
LOC: EDBD 16:43 → ER 16:47 → TELE 23:05 → TELE-WESTW 04-09 05:49
PROVIDERS: ADMIT Nurse Practitioner Family; ATTEND Nurse Practitioner Family
PROC: 05HF33Z Insertion of Infusion Device into Left Cephalic Vein, Percutaneous Approach (ICD-10-PCS; principal; 2021-04-08)
PROC: B54NZZA Ultrasonography of Left Upper Extremity Veins, Guidance (ICD-10-PCS; 2021-04-08)
DX: N32.89 Other specified disorders of bladder (principal); I13.10 Hypertensive heart and chronic kidney disease without heart failure, with stage 1 through stage 4 chronic kidney disease, or unspecified chronic kidney disease; K92.2 Gastrointestinal hemorrhage, unspecified; E11.22 Type 2 diabetes mellitus with diabetic chronic kidney disease; R33.9 Retention of urine, unspecified; N18.4 Chronic kidney disease, stage 4 (severe); E11.65 Type 2 diabetes mellitus with hyperglycemia; Z20.822 Contact with and (suspected) exposure to COVID-19; F12.10 Cannabis abuse, uncomplicated; K59.00 Constipation, unspecified; Z88.0 Allergy status to penicillin; Z79.4 Long term (current) use of insulin; Z82.49 Family history of ischemic heart disease and other diseases of the circulatory system; Z83.3 Family history of diabetes mellitus; Z90.49 Acquired absence of other specified parts of digestive tract; Z89.221 Acquired absence of right upper limb above elbow; Z79.84 Long term (current) use of oral hypoglycemic drugs
CPT/HCPCS: 36415; 74176; 80048; 80053; 80307; 81001; 81025; 82150; 82962; 83036; 83690; 85025; 87426; 93005; 96361; 96374; 96375; C9113; G0378; J1815; J2405

== ENCOUNTER 2021-07-30 09:59 | Inpatient (IN) | payer MEDICARE, MEDICAID ==
[~2021-07-30] VITALS: Ht 170.2 cm; Wt 73.0 kg
[~2021-07-30 09:59] MED LIST changes: +AMLO-496 PO; +CLON0.1T PO; -LEVO500T31 PO
[2021-07-30] MEDS ORDERED: SODIUM CHLORIDE 0.9% 1,000 ML IV ONE (10:45)
[2021-07-30 11:06] LABS: Basophils # (auto) 0 10 ^3/uL (0-0.2); Eosinophils # (auto) 0 10 ^3/uL (0-0.8); Monocytes # (auto) 0.6 10 ^3/uL (0-1.3); Neutrophils # (auto) 10.7 10 ^3/uL (1.6-8.6)
[2021-07-30 11:08] LABS: Basophils % (auto) 0.1 % (0.0-2.0); Hemoglobin 10.3 g/dL (12.2-16.2); Lymphocytes # (auto) 1.1 10 ^3/uL (0.4-5.4); Lymphocytes % (auto) 9.1 % (10.0-50.0); Mean Corpuscular Hemoglobin 23.2 pg (28.0-32.0); Mean Corpuscular Volume 74.8 fL (80.0-100.0); Neutrophils % (auto) 85.8 % (37.0-80.0); Nucleated Red Blood Cells % 0.1 %; Red Blood Cells 4.41 10^6/uL (4.0-5.20); White Blood Cell 12.4 10^3/uL (4.4-10.8)
[2021-07-30 11:20] LABS: Albumin 3.1 g/dL (3.4-5.0); Calcium 8.7 mg/dL (8.5-10.1); Potassium 3.5 mmol/L (3.5-5.1)
[2021-07-30 11:23] LABS: BUN/Creatinine Ratio 12.8; Bilirubin, Total 0.6 mg/dL (0.2-1.0)
[2021-07-30] MEDS ORDERED: DEXTROSE (50%) 50ML SYRG IV PRN ×2 (13:45→15:45)
[2021-07-30] MEDS ORDERED: InsuLIN R (HUMAN) 100 UNITS in SODIUM CHL 0.9% 99 ML IV SCH ×2 (13:45→15:45)
[2021-07-30] MEDS ORDERED: SODIUM CHLORIDE 0.9% 1,000 ML IV SCH ×3 (13:45→19:45)
[2021-07-30] MEDS ORDERED: INSULIN LANTUS (GLARGINE) 1 /0.01ml (100units/ml) SC ONE ×2 (13:45→15:45)
[2021-07-30] MEDS ORDERED: ONDANSETRON HCL 4 MG/2 ML VIAL IV ONE (14:15)
[2021-07-30] MEDS ORDERED: ONDANSETRON HCL 4 MG/2 ML VIAL ONE (14:21)
[2021-07-30] MEDS ORDERED: ACCU-CHEK COMFORT CURVE STRIP VI SCH (15:00)
[2021-07-30 15:36] LABS: Basophils # (auto) 0.1 10 ^3/uL (0-0.2); Eosinophils # (auto) 0 10 ^3/uL (0-0.8); Mean Corpuscular Hemoglobin 23.4 pg (28.0-32.0); Mean Corpuscular Hgb Conc. 32.7 g/dL (32.0-36.0); Mean Corpuscular Volume 71.7 fL (80.0-100.0); Monocytes # (auto) 0.5 10 ^3/uL (0-1.3)
[2021-07-30 15:37] LABS: Basophils % (auto) 0.6 % (0.0-2.0); Hematocrit 26.7 % (36.0-46.0); Hemoglobin 8.7 g/dL (12.2-16.2); Lymphocytes # (auto) 1.1 10 ^3/uL (0.4-5.4); Lymphocytes % (auto) 8.3 % (10.0-50.0); Monocytes % (auto) 3.8 % (0.0-12.0); Neutrophils # (auto) 11.1 10 ^3/uL (1.6-8.6); Neutrophils % (auto) 87.3 % (37.0-80.0); Nucleated Red Blood Cells % 0.1 %; Red Blood Cells 3.73 10^6/uL (4.0-5.20); Red Cell Distribution Width 16.7 % (11.8-14.3); White Blood Cell 12.7 10^3/uL (4.4-10.8)
[2021-07-30] MEDS: SOD CHL 0.9%/ KCL 20MEQ 1,000 ML IV SCH ×2 (15:45→22:25)
[2021-07-30] MEDS ORDERED: POTASSIUM CHL 20MEQ/100ML 100 ML IV PRN (15:45)
[2021-07-30] MEDS ORDERED: POTASSIUM CHL 20MEQ/100ML 200 ML IV PRN (15:45)
[2021-07-30] MEDS ORDERED: cefTRIAXone 1GM/50ML D5W 50 ML IV ONE (15:45)
[2021-07-30 15:53] LABS: BUN/Creatinine Ratio 13.7; Calcium 8.2 mg/dL (8.5-10.1); Magnesium 1.9 mg/dL (1.6-2.6); Phosphorus 2.6 mg/dL (2.5-4.90); Potassium 3.5 mmol/L (3.5-5.1)
[2021-07-30] MEDS: ACCU-CHEK COMFORT CURVE STRIP VI SCH ×6 (16:30→23:59)
[2021-07-30 17:04] LABS: Cholesterol 244 mg/dL (< 200)
[2021-07-30 17:07] LABS: HDL Cholesterol 57 mg/dL (40-59); LDL Cholesterol 163 mg/dL (< 100); Triglycerides 114 mg/dL (< 150)
[2021-07-30] MEDS: SUCRALFATE 1 GM/10 ML ORAL SUSP PO SCH ×3 (17:11→22:00)
[2021-07-30] MEDS: PANTOPRAZOLE 40 MG/10 ML VIAL INJ IV SCH ×2 (17:11→22:02)
[2021-07-30] MEDS: D5W/SOD CHL 0.45%/KCL 20MEQ 1,000 ML IV SCH ×5 (17:12→22:12)
[2021-07-30] MEDS: POTASSIUM CHL 20MEQ/100ML 100 ML IV SCH ×2 (17:12→19:03)
[2021-07-30] MEDS: LORazepam 2MG/ML-1ML VIAL IV PRN (17:46)
[2021-07-31] MEDS ORDERED: ONDANSETRON HCL 4 MG/2 ML VIAL IV ONE
[2021-07-31 00:13] LABS: Basophils # (auto) 0 10 ^3/uL (0-0.2); Eosinophils # (auto) 0 10 ^3/uL (0-0.8); Red Cell Distribution Width 16.8 % (11.8-14.3); White Blood Cell 13.3 10^3/uL (4.4-10.8)
[2021-07-31 00:14] LABS: Basophils % (auto) 0.1 % (0.0-2.0); Hematocrit 26.5 % (36.0-46.0); Hemoglobin 8.4 g/dL (12.2-16.2); Lymphocytes # (auto) 1.5 10 ^3/uL (0.4-5.4); Lymphocytes % (auto) 11.3 % (10.0-50.0); Mean Corpuscular Hemoglobin 23.4 pg (28.0-32.0); Mean Corpuscular Hgb Conc. 31.8 g/dL (32.0-36.0); Mean Corpuscular Volume 73.6 fL (80.0-100.0); Monocytes # (auto) 1.1 10 ^3/uL (0-1.3); Neutrophils # (auto) 10.7 10 ^3/uL (1.6-8.6); Neutrophils % (auto) 80.6 % (37.0-80.0); Nucleated Red Blood Cells % 0.1 %
[2021-07-31 00:37] LABS: BUN/Creatinine Ratio 16.9; Potassium 4.4 mmol/L (3.5-5.1)
[2021-07-31 00:49] LABS: INR 0.99 (0.9-1.15)
[2021-07-31] MEDS: ACCU-CHEK COMFORT CURVE STRIP VI SCH ×7 (01:21→20:17)
[2021-07-31 02:03] LABS: BUN/Creatinine Ratio 16.3; Calcium 7.8 mg/dL (8.5-10.1); Potassium 3.8 mmol/L (3.5-5.1)
[2021-07-31] MEDS: SOD CHL 0.9%/ KCL 20MEQ 1,000 ML IV SCH (04:34)
[2021-07-31] MEDS: ONDANSETRON HCL 4 MG/2 ML VIAL IV PRN (04:58)
[2021-07-31] MEDS ORDERED: hydrALAZINE HCL 20 MG/ML VL IV PRN (05:00)
[2021-07-31] MEDS: D5W/SOD CHL 0.45%/KCL 20MEQ 1,000 ML IV SCH ×3 (05:33→20:27)
[2021-07-31] MEDS ORDERED: DEXTROSE (50%) 50ML SYRG IV PRN (05:45)
[2021-07-31] MEDS: SUCRALFATE 1 GM/10 ML ORAL SUSP PO SCH ×4 (05:52→21:41)
[2021-07-31] MEDS: InsuLIN REG 1unit/0.01ml Soln (100units/ml) SC SCH ×4 (07:56→20:00)
[2021-07-31] MEDS: LORazepam 2MG/ML-1ML VIAL IV PRN ×2 (08:10→16:25)
[2021-07-31 09:00] LABS: Basophils # (auto) 0.1 10 ^3/uL (0-0.2); Eosinophils # (auto) 0 10 ^3/uL (0-0.8); Hemoglobin 8.7 g/dL (12.2-16.2); Lymphocytes # (auto) 1.3 10 ^3/uL (0.4-5.4); White Blood Cell 14.6 10^3/uL (4.4-10.8)
[2021-07-31 09:01] LABS: Basophils % (auto) 0.5 % (0.0-2.0); Hematocrit 26.8 % (36.0-46.0); Lymphocytes % (auto) 8.7 % (10.0-50.0); Mean Corpuscular Hemoglobin 23.4 pg (28.0-32.0); Mean Corpuscular Hgb Conc. 32.4 g/dL (32.0-36.0); Mean Corpuscular Volume 72.1 fL (80.0-100.0); Monocytes % (auto) 6.9 % (0.0-12.0); Neutrophils # (auto) 12.2 10 ^3/uL (1.6-8.6); Neutrophils % (auto) 83.9 % (37.0-80.0); Red Blood Cells 3.71 10^6/uL (4.0-5.20); Red Cell Distribution Width 16.4 % (11.8-14.3)
[2021-07-31 09:24] LABS: Calcium 7.7 mg/dL (8.5-10.1); Potassium 3.5 mmol/L (3.5-5.1)
[2021-07-31 09:26] LABS: BUN/Creatinine Ratio 14.3
[2021-07-31] MEDS: PANTOPRAZOLE 40 MG/10 ML VIAL INJ IV SCH ×2 (09:29→21:42)
[2021-07-31] MEDS: cefTRIAXone 1GM/50ML D5W 50 ML IV SCH (09:29)
[2021-07-31] MEDS ORDERED: INSULIN LANTUS (GLARGINE) 1 /0.01ml (100units/ml) SC SCH (10:00)
[2021-07-31 14:22] LABS: BUN/Creatinine Ratio 11.9; Calcium 7.5 mg/dL (8.5-10.1); Potassium 3.8 mmol/L (3.5-5.1)
[2021-07-31 18:52] LABS: BUN/Creatinine Ratio 10.9; Calcium 7.6 mg/dL (8.5-10.1); Potassium 3.4 mmol/L (3.5-5.1)
[2021-07-31] MEDS ORDERED: LISINOPRIL 20 MG TAB PO ONE (19:30)
[2021-07-31] MEDS ORDERED: LABETALOL HCL 5 MG/ML 4ML SYRINGE IV PRN (19:30)
[2021-07-31] MEDS ORDERED: POTASSIUM CHLORIDE 20 MEQ, LIDOCAINE 1% (LOCAL ANESTH.) 2 ML in SODIUM CHL 0.9% 100 ML IV ONE (19:30)
[2021-07-31] MEDS ORDERED: LABETALOL HCL 5 MG/ML 4ML SYRINGE IV ONE (19:30)
[2021-07-31 21:05] VITALS: BP 164/98
[2021-07-31] MEDS: cloNIDine HCL 0.1 MG TAB PO SCH (21:41)
[2021-07-31] MEDS: traZODone HCL 50 MG TAB PO SCH (21:42)
[2021-07-31 22:00] VITALS: BP 153/92
[2021-08-01] MEDS: ACCU-CHEK COMFORT CURVE STRIP VI SCH ×6 (00:41→20:26)
[2021-08-01] MEDS: InsuLIN REG 1unit/0.01ml Soln (100units/ml) SC SCH ×6 (04:12→20:27)
[2021-08-01 05:00] VITALS: BP 134/89
[2021-08-01] MEDS: SUCRALFATE 1 GM/10 ML ORAL SUSP PO SCH ×4 (06:26→21:54)
[2021-08-01] MEDS: cloNIDine HCL 0.1 MG TAB PO SCH ×3 (06:26→21:55)
[2021-08-01] MEDS: LORazepam 2MG/ML-1ML VIAL IV PRN ×3 (06:27→18:42)
[2021-08-01] MEDS: ONDANSETRON HCL 4 MG/2 ML VIAL IV PRN ×3 (06:37→17:33)
[2021-08-01 08:00] VITALS: BP 152/96
[2021-08-01] MEDS: D5W/SOD CHL 0.45%/KCL 20MEQ 1,000 ML IV SCH (08:25)
[2021-08-01] MEDS: PANTOPRAZOLE 40 MG/10 ML VIAL INJ IV SCH ×2 (08:55→21:54)
[2021-08-01] MEDS: cefTRIAXone 1GM/50ML D5W 50 ML IV SCH (08:55)
[2021-08-01] MEDS: LISINOPRIL 20 MG TAB PO SCH (08:56)
[2021-08-01 12:00] VITALS: BP 167/100
[2021-08-01 16:00] VITALS: BP 173/98
[2021-08-01 20:00] VITALS: BP 123/75
[2021-08-01] MEDS: traZODone HCL 50 MG TAB PO SCH (21:55)
[2021-08-01 22:00] VITALS: BP 123/75
[2021-08-02] MEDS: ACCU-CHEK COMFORT CURVE STRIP VI SCH ×4 (00:16→12:00)
[2021-08-02] MEDS: InsuLIN REG 1unit/0.01ml Soln (100units/ml) SC SCH ×4 (04:21→12:00)
[2021-08-02 05:00] VITALS: BP 123/61
[2021-08-02] MEDS: cloNIDine HCL 0.1 MG TAB PO SCH ×2 (06:16→14:00)
[2021-08-02] MEDS: SUCRALFATE 1 GM/10 ML ORAL SUSP PO SCH ×2 (06:16→13:04)
[2021-08-02] MEDS: LORazepam 2MG/ML-1ML VIAL IV PRN ×2 (06:54→13:23)
[2021-08-02 07:10] LABS: Basophils # (auto) 0 10 ^3/uL (0-0.2); Basophils % (auto) 0.6 % (0.0-2.0); Eosinophils # (auto) 0.1 10 ^3/uL (0-0.8); Eosinophils % (auto) 1.5 % (0.0-7.0); Hemoglobin 9.6 g/dL (12.2-16.2); Lymphocytes # (auto) 2.7 10 ^3/uL (0.4-5.4); Mean Corpuscular Hemoglobin 23.7 pg (28.0-32.0); Monocytes # (auto) 0.6 10 ^3/uL (0-1.3); Neutrophils # (auto) 4.1 10 ^3/uL (1.6-8.6)
[2021-08-02 07:14] LABS: Hematocrit 29.4 % (36.0-46.0); Lymphocytes % (auto) 35.8 % (10.0-50.0); Mean Corpuscular Hgb Conc. 32.8 g/dL (32.0-36.0); Mean Corpuscular Volume 72.2 fL (80.0-100.0); Neutrophils % (auto) 54.1 % (37.0-80.0); Nucleated Red Blood Cells % 0.1 %; Red Blood Cells 4.07 10^6/uL (4.0-5.20); Red Cell Distribution Width 16.5 % (11.8-14.3); White Blood Cell 7.5 10^3/uL (4.4-10.8)
[2021-08-02 07:20] LABS: BUN/Creatinine Ratio 9.2; Calcium 7.6 mg/dL (8.5-10.1); Potassium 3.2 mmol/L (3.5-5.1)
[2021-08-02 09:00] VITALS: BP 172/92
[2021-08-02] MEDS: cefTRIAXone 1GM/50ML D5W 50 ML IV SCH (10:02)
[2021-08-02] MEDS: PANTOPRAZOLE 40 MG/10 ML VIAL INJ IV SCH (10:02)
[2021-08-02] MEDS: LISINOPRIL 20 MG TAB PO SCH (10:03)
[2021-08-02] MEDS ORDERED: POTASSIUM CHL 20 Meq TABLET PO ONE (12:15)
[2021-08-02] MEDS ORDERED: hydrALAZINE HCL 20 MG/ML VL IV ONE (12:30)
[2021-08-02 14:30] VITALS: BP 132/69
== END 2021-08-02 15:10 | disposition home or self-care (01) | DRG 637 ==
LOC: ER 09:59 → TELE 15:43 → TELE-CENTR 07-31 18:54
PROVIDERS: ADMIT Registered Nurse; ATTEND Internal Medicine
DX: E10.10 Type 1 diabetes mellitus with ketoacidosis without coma (principal); N17.0 Acute kidney failure with tubular necrosis; R65.10 Systemic inflammatory response syndrome (SIRS) of non-infectious origin without acute organ dysfunction; D72.829 Elevated white blood cell count, unspecified; F32.A Depression, unspecified; Z20.822 Contact with and (suspected) exposure to COVID-19; D64.9 Anemia, unspecified; F41.9 Anxiety disorder, unspecified; G89.29 Other chronic pain; I10 Essential (primary) hypertension; Z82.49 Family history of ischemic heart disease and other diseases of the circulatory system; Z83.3 Family history of diabetes mellitus; Z90.49 Acquired absence of other specified parts of digestive tract; Z91.14 Patient's other noncompliance with medication regimen; Z98.82 Breast implant status; Z79.4 Long term (current) use of insulin
CPT/HCPCS: 36415; 36600; 74176; 80048; 80053; 80061; 82010; 82805; 82962; 83036; 83735; 83930; 84100; 85025; 85610; 86850; 86900; 86901; 96361; 96365; 96375; 99291; C9113; G0378; J0696; J1815; J2001; J2405; J3480; J3490

== ENCOUNTER 2021-12-23 16:39 | Inpatient (IN) | payer MEDICARE, MEDICAID ==
[~2021-12-23] VITALS: Ht 172.7 cm; Wt 66.0 kg
[~2021-12-23 16:39] MED LIST changes: +DEXTROSE 50% SYRINGE 50 ML IV ONE; +GLUCAGON HYDROCHLORIDE (RDNA) 1 MG VIAL ONE
[2021-12-23] MEDS ORDERED: SODIUM CHLORIDE 0.9% 1,000 ML IV ONE (17:00)
[2021-12-23 17:42] LABS: Basophils # (auto) 0.1 10 ^3/uL (0-0.2); Eosinophils # (auto) 0.2 10 ^3/uL (0-0.8); Hemoglobin 9.7 g/dL (12.2-16.2); Monocytes # (auto) 0.6 10 ^3/uL (0-1.3)
[2021-12-23 17:44] LABS: Basophils % (auto) 0.8 % (0.0-2.0); Eosinophils % (auto) 2.4 % (0.0-7.0); Hematocrit 30.3 % (36.0-46.0); Lymphocytes # (auto) 2.2 10 ^3/uL (0.4-5.4); Lymphocytes % (auto) 34.8 % (10.0-50.0); Mean Corpuscular Hgb Conc. 31.9 g/dL (32.0-36.0); Mean Corpuscular Volume 68.9 fL (80.0-100.0); Monocytes % (auto) 10.1 % (0.0-12.0); Neutrophils # (auto) 3.2 10 ^3/uL (1.6-8.6); Neutrophils % (auto) 51.9 % (37.0-80.0); Red Cell Distribution Width 18.8 % (11.8-14.3); White Blood Cell 6.3 10^3/uL (4.4-10.8)
[2021-12-23] MEDS ORDERED: LACTATED RINGER'S 1,000 ML IV ONE (18:00)
[2021-12-23 18:03] LABS: Albumin 2.2 g/dL (3.4-5.0); Calcium 7.7 mg/dL (8.5-10.1); Potassium 3.5 mmol/L (3.5-5.1)
[2021-12-23 18:06] LABS: BUN/Creatinine Ratio 12.7; Bilirubin, Total 0.4 mg/dL (0.2-1.0); Total Protein 5.3 g/dL (6.4-8.2)
[2021-12-23] MEDS: MAGNESIUM SULFATE 1GM/100ML 100 ML IV SCH ×2 (18:55→20:05)
[2021-12-23] MEDS ORDERED: GLUCAGON HYDROCHLORIDE (RDNA) 1 MG VIAL IM ONE (19:15)
[2021-12-23] MEDS ORDERED: DEXTROSE (50%) 50ML SYRG IV ONE (19:15)
[2021-12-23] MEDS ORDERED: LORazepam 0.5 MG TAB PO ONE (20:30)
[2021-12-23] MEDS ORDERED: fentaNYL CITRATE 100 MCG/2 ML VL IV ONE ×2 (21:00→23:15)
[2021-12-23] MEDS ORDERED: ONDANSETRON HCL 4 MG/2 ML VIAL IV ONE (21:00)
[2021-12-23 21:20] LABS: Blood Alcohol < 3.0 mg/dL (0-5)
[2021-12-23] MEDS ORDERED: MORPHINE SULFATE INJ 2 MG/ml SYRG IV PRN (23:45)
[2021-12-23] MEDS ORDERED: NITROGLYCERIN 0.4 MG SL TAB SL PRN (23:45)
[2021-12-23] MEDS ORDERED: DEXTROSE (50%) 50ML SYRG IV PRN (23:45)
[2021-12-23] MEDS ORDERED: ACETAMINOPHEN 325 MG TAB PO PRN (23:45)
[2021-12-23] MEDS ORDERED: TEMAZEPAM 15 MG CAP PO PRN (23:45)
[2021-12-23] MEDS ORDERED: ALBUMIN 5% 250 ML IV ONE (23:45)
[2021-12-23] MEDS ORDERED: ONDANSETRON HCL 4 MG/2 ML VIAL IV PRN (23:45)
[2021-12-23] MEDS ORDERED: SODIUM CHLORIDE 0.9% 1,000 ML IV SCH (23:45)
[2021-12-24] MEDS: InsuLIN REG 1unit/0.01ml Soln (100units/ml) SC SCH ×2 (04:00)
[2021-12-24] MEDS: ACCU-CHEK COMFORT CURVE STRIP VI SCH ×2 (04:22)
[2021-12-24 05:17] LABS: Basophils # (auto) 0.1 10 ^3/uL (0-0.2); Basophils % (auto) 0.8 % (0.0-2.0); Eosinophils # (auto) 0.1 10 ^3/uL (0-0.8); Eosinophils % (auto) 1.9 % (0.0-7.0); Hematocrit 26.8 % (36.0-46.0); Hemoglobin 8.7 g/dL (12.2-16.2); Lymphocytes # (auto) 2.7 10 ^3/uL (0.4-5.4); Lymphocytes % (auto) 36.7 % (10.0-50.0); Mean Corpuscular Hemoglobin 22.2 pg (28.0-32.0); Mean Corpuscular Hgb Conc. 32.4 g/dL (32.0-36.0); Mean Corpuscular Volume 68.5 fL (80.0-100.0); Monocytes # (auto) 0.4 10 ^3/uL (0-1.3); Monocytes % (auto) 6.2 % (0.0-12.0); Neutrophils % (auto) 54.4 % (37.0-80.0); Red Blood Cells 3.92 10^6/uL (4.0-5.20); Red Cell Distribution Width 19.1 % (11.8-14.3); White Blood Cell 7.3 10^3/uL (4.4-10.8)
[2021-12-24 05:36] LABS: BUN/Creatinine Ratio 15.1; Calcium 7.1 mg/dL (8.5-10.1); Potassium 4.1 mmol/L (3.5-5.1)
[2021-12-24 05:39] LABS: Bilirubin, Total 0.3 mg/dL (0.2-1.0); Total Protein 4.8 g/dL (6.4-8.2)
[2021-12-24 08:10] VITALS: BP 115/78
[2021-12-24] MEDS ORDERED: PANTOPRAZOLE 40 MG TAB PO SCH (10:00)
== END 2021-12-24 08:45 | disposition left against medical advice (07) | DRG 71 ==
LOC: ER 16:39 → TELE 23:40
PROVIDERS: ADMIT Nurse Practitioner; ATTEND Nurse Practitioner Acute Care
DX: G93.41 Metabolic encephalopathy (principal); N17.9 Acute kidney failure, unspecified; E11.649 Type 2 diabetes mellitus with hypoglycemia without coma; Z20.822 Contact with and (suspected) exposure to COVID-19; Z53.29 Procedure and treatment not carried out because of patient's decision for other reasons; E86.0 Dehydration; Z83.3 Family history of diabetes mellitus; Z82.49 Family history of ischemic heart disease and other diseases of the circulatory system; Z90.49 Acquired absence of other specified parts of digestive tract; Z79.4 Long term (current) use of insulin
CPT/HCPCS: 36415; 70450; 71045; 74176; 80053; 80320; 82962; 83735; 84484; 84702; 85025; 87426; 93005; 96361; 96365; 96366; 96375; 96376; G0378

== ENCOUNTER 2022-01-03 22:15 | Inpatient (IN) | payer MEDICARE, MEDICAID ==
[~2022-01-03] VITALS: Ht 170.2 cm; Wt 66.9 kg
[~2022-01-03 22:15] MED LIST changes: -DEXTROSE 50% SYRINGE 50 ML IV ONE; -GLUCAGON HYDROCHLORIDE (RDNA) 1 MG VIAL ONE
[2022-01-03 23:46] LABS: Hematocrit 36.5 % (36.0-46.0)
[2022-01-03 23:56] LABS: Basophils # (auto) 0 10 ^3/uL (0-0.2); Basophils % (auto) 0.2 % (0.0-2.0); Eosinophils # (auto) 0 10 ^3/uL (0-0.8); Hemoglobin 11.6 g/dL (12.2-16.2); Lymphocytes # (auto) 1.4 10 ^3/uL (0.4-5.4); Lymphocytes % (auto) 9.1 % (10.0-50.0); Mean Corpuscular Hgb Conc. 31.8 g/dL (32.0-36.0); Mean Corpuscular Volume 69.1 fL (80.0-100.0); Monocytes % (auto) 6.2 % (0.0-12.0); Neutrophils # (auto) 13.1 10 ^3/uL (1.6-8.6); Neutrophils % (auto) 84.5 % (37.0-80.0); Red Blood Cells 5.28 10^6/uL (4.0-5.20); White Blood Cell 15.5 10^3/uL (4.4-10.8)
[2022-01-04 00:02] LABS: Red Cell Distribution Width 20.9 % (11.8-14.3)
[2022-01-04 00:07] LABS: BUN/Creatinine Ratio 16.3; Calcium 9.1 mg/dL (8.5-10.1)
[2022-01-04 00:09] LABS: Bilirubin, Total 0.4 mg/dL (0.2-1.0); Total Protein 7.8 g/dL (6.4-8.2)
[2022-01-04] MEDS ORDERED: SODIUM CHLORIDE 0.9% 1,000 ML IV ONE ×2 (01:45→13:15)
[2022-01-04] MEDS ORDERED: ONDANSETRON HCL 4 MG/2 ML VIAL IV ONE (02:00)
[2022-01-04] MEDS ORDERED: levoFLOXacin 500MG 100 ML IV ONE (02:00)
[2022-01-04] MEDS ORDERED: DEXTROSE (50%) 50ML SYRG IV PRN ×2 (10:00→13:30)
[2022-01-04] MEDS: amLODIPine BESYLATE 5 MG TAB PO SCH (10:00)
[2022-01-04] MEDS ORDERED: VANCOMYCIN PER PHARMACY 0 MG IV SCH (10:00)
[2022-01-04] MEDS: SOD CHL 0.45% 1,000 ML IV SCH ×2 (10:00→18:18)
[2022-01-04] MEDS ORDERED: NITROGLYCERIN 0.4 MG SL TAB SL PRN (10:30)
[2022-01-04] MEDS ORDERED: MORPHINE SULFATE INJ 2 MG/ml SYRG IV PRN (10:30)
[2022-01-04] MEDS ORDERED: ONDANSETRON HCL 4 MG/2 ML VIAL IV PRN (10:30)
[2022-01-04] MEDS ORDERED: INSULIN LANTUS (GLARGINE) 1 /0.01ml (100units/ml) SC ONE (10:45)
[2022-01-04] MEDS ORDERED: VANCOMYCIN 1GM/250ML 250 ML IV ONE (11:15)
[2022-01-04] MEDS: InsuLIN REG 1unit/0.01ml Soln (100units/ml) SC SCH (11:29)
[2022-01-04] MEDS: ACCU-CHEK COMFORT CURVE STRIP VI SCH ×8 (11:33→22:41)
[2022-01-04] MEDS: MORPHINE SULFATE INJ 2 MG/ml SYRG IV PRN ×2 (11:45→18:39)
[2022-01-04] MEDS: GABAPENTIN 300 MG CAP PO SCH ×2 (12:09→22:45)
[2022-01-04 12:20] LABS: Urine Bacteria NONE SEEN /hpf (None Seen); Urine Blood 1+ /uL (Negative); Urine Hyaline Cast FEW /lpf (0 - 2); Urine Specific Gravity 1.031 (1.001-1.035); Urine WBC 2 /hpf (0 - 5)
[2022-01-04 12:20] LABS: Lactic Acid w/Reflex 2.4 mmol/L (0.4-2.0)
[2022-01-04 12:22] LABS: Alcohol, Urine < 3.0 mg/dL (0-10); Amphetamine Screen, Urine NEGATIVE (NEGATIVE); Barbiturate Scree,Urine NEGATIVE (NEGATIVE); Benzodiazephine Screen, Urine NEGATIVE (NEGATIVE); Cannabinoid Screen, Urine POSITIVE (NEGATIVE); Cocaine Screen, Urine NEGATIVE (NEGATIVE); Opiate Scree,Urine NEGATIVE (NEGATIVE); Phencyclidine Screen, Urine NEGATIVE (NEGATIVE)
[2022-01-04] MEDS: cloNIDine HCL 0.1 MG TAB PO SCH ×2 (13:28→22:46)
[2022-01-04] MEDS: AZTREONAM 1GM INJ 1 GM in D5W 5% 50 ML IV SCH ×2 (13:28→23:40)
[2022-01-04] MEDS: SODIUM CHLORIDE 0.9% 1,000 ML IV SCH ×3 (13:33→21:51)
[2022-01-04] MEDS ORDERED: PANTOPRAZOLE 40 MG/10 ML VIAL INJ IV ONE (13:45)
[2022-01-04] MEDS: InsuLIN R (HUMAN) 100 UNITS in SODIUM CHL 0.9% 99 ML IV SCH (14:04)
[2022-01-04 14:15] LABS: BUN/Creatinine Ratio 18.8; Calcium 8.8 mg/dL (8.5-10.1); Potassium 4.7 mmol/L (3.5-5.1)
[2022-01-04 15:18] LABS: Magnesium 2.4 mg/dL (1.6-2.6)
[2022-01-04 15:20] LABS: Phosphorus 3.7 mg/dL (2.5-4.90)
[2022-01-04 15:22] LABS: Cholesterol 258 mg/dL (< 200); HDL Cholesterol 43 mg/dL (40-59); LDL Cholesterol 173 mg/dL (< 100); Triglycerides 227 mg/dL (< 150)
[2022-01-04] MEDS: D5W/SOD CHL 0.45%/KCL 20MEQ 1,000 ML IV SCH (16:45)
[2022-01-04 16:46] LABS: Basophils # (auto) 0 10 ^3/uL (0-0.2); Basophils % (auto) 0.2 % (0.0-2.0); Eosinophils # (auto) 0 10 ^3/uL (0-0.8); Hematocrit 34.9 % (36.0-46.0); Lymphocytes % (auto) 7.4 % (10.0-50.0); Mean Corpuscular Hemoglobin 22.2 pg (28.0-32.0); Mean Corpuscular Hgb Conc. 31.6 g/dL (32.0-36.0); Mean Corpuscular Volume 70.3 fL (80.0-100.0); Monocytes # (auto) 0.8 10 ^3/uL (0-1.3); Monocytes % (auto) 5.9 % (0.0-12.0); Neutrophils # (auto) 12.2 10 ^3/uL (1.6-8.6); Neutrophils % (auto) 86.5 % (37.0-80.0); Red Blood Cells 4.97 10^6/uL (4.0-5.20); Red Cell Distribution Width 20.8 % (11.8-14.3); White Blood Cell 14.1 10^3/uL (4.4-10.8)
[2022-01-04 17:10] LABS: Chloride 111 mmol/L (98-107); Potassium 4.2 mmol/L (3.5-5.1); Sodium 144 mmol/L (136-145)
[2022-01-04 17:11] LABS: Anion Gap 11 (5-15); BUN/Creatinine Ratio 20.7; Blood Urea Nitrogen 50 mg/dL (7-18); Calcium 7.8 mg/dL (8.5-10.1); Carbon Dioxide 22 mmol/L (21-32); GFR African American 29 mL/min; GFR Non-African American 24 mL/min; Glucose 267 mg/dL (74-106)
[2022-01-04] MEDS ORDERED: SODIUM CHLORIDE 0.9% 1,000 ML IV SCH (17:30)
[2022-01-04 19:59] LABS: BUN/Creatinine Ratio 21.7; Calcium 7.8 mg/dL (8.5-10.1); Potassium 4.4 mmol/L (3.5-5.1)
[2022-01-04] MEDS: PANTOPRAZOLE 40 MG/10 ML VIAL INJ IV SCH (22:45)
[2022-01-04] MEDS: INSULIN LANTUS (GLARGINE) 1 /0.01ml (100units/ml) SC SCH (22:48)
[2022-01-04] MEDS: SUCRALFATE 1 GM/10 ML ORAL SUSP PO SCH (23:20)
[2022-01-04] MEDS ORDERED: AZTREONAM 1 GM INJ VIAL ONE (23:35)
[2022-01-05] MEDS: cloNIDine HCL 0.1 MG TAB PO SCH ×4 (00:09→22:00)
[2022-01-05] MEDS: ACCU-CHEK COMFORT CURVE STRIP VI SCH ×11 (00:13→22:13)
[2022-01-05] MEDS: MORPHINE SULFATE INJ 2 MG/ml SYRG IV PRN ×5 (00:37→21:10)
[2022-01-05 01:38] LABS: BUN/Creatinine Ratio 19.4; Calcium 7.6 mg/dL (8.5-10.1); Potassium 4.3 mmol/L (3.5-5.1)
[2022-01-05] MEDS: D5W/SOD CHL 0.45%/KCL 20MEQ 1,000 ML IV SCH ×3 (04:00→15:25)
[2022-01-05] MEDS: SODIUM CHLORIDE 0.9% 1,000 ML IV SCH ×2 (04:27→08:50)
[2022-01-05] MEDS: SUCRALFATE 1 GM/10 ML ORAL SUSP PO SCH ×4 (06:42→21:36)
[2022-01-05] MEDS: AZTREONAM 1GM INJ 1 GM in D5W 5% 50 ML IV SCH ×3 (06:49→21:51)
[2022-01-05] MEDS: SOD CHL 0.45% 1,000 ML IV SCH ×6 (06:55→15:25)
[2022-01-05 08:07] LABS: Basophils # (auto) 0 10 ^3/uL (0-0.2); Lymphocytes # (auto) 2.1 10 ^3/uL (0.4-5.4); Monocytes # (auto) 0.4 10 ^3/uL (0-1.3)
[2022-01-05 08:09] LABS: Basophils % (auto) 0.2 % (0.0-2.0); Eosinophils # (auto) 0.1 10 ^3/uL (0-0.8); Eosinophils % (auto) 1.2 % (0.0-7.0); Hematocrit 31.7 % (36.0-46.0); Lymphocytes % (auto) 28.9 % (10.0-50.0); Mean Corpuscular Hemoglobin 22.5 pg (28.0-32.0); Mean Corpuscular Hgb Conc. 31.5 g/dL (32.0-36.0); Mean Corpuscular Volume 71.5 fL (80.0-100.0); Monocytes % (auto) 5.2 % (0.0-12.0); Neutrophils # (auto) 4.7 10 ^3/uL (1.6-8.6); Neutrophils % (auto) 64.5 % (37.0-80.0); Nucleated Red Blood Cells % 0.1 %; Red Blood Cells 4.43 10^6/uL (4.0-5.20); White Blood Cell 7.3 10^3/uL (4.4-10.8)
[2022-01-05 08:11] LABS: Red Cell Distribution Width 20.3 % (11.8-14.3)
[2022-01-05 08:19] LABS: BUN/Creatinine Ratio 18.1; Calcium 7.6 mg/dL (8.5-10.1); Potassium 4.2 mmol/L (3.5-5.1)
[2022-01-05] MEDS: HYDROcodone-ACET 5/325MG TAB PO PRN ×3 (09:10→23:12)
[2022-01-05] MEDS ORDERED: ENOXAPARIN SOD 30 MG/0.3 ML SYRINGE SC SCH (10:00)
[2022-01-05] MEDS: GABAPENTIN 300 MG CAP PO SCH ×2 (10:27→21:36)
[2022-01-05] MEDS: PANTOPRAZOLE 40 MG/10 ML VIAL INJ IV SCH ×2 (10:27→21:36)
[2022-01-05] MEDS: amLODIPine BESYLATE 5 MG TAB PO SCH (10:31)
[2022-01-05] MEDS: InsuLIN R (HUMAN) 100 UNITS in SODIUM CHL 0.9% 99 ML IV SCH (13:07)
[2022-01-05] MEDS ORDERED: ACCU-CHEK COMFORT CURVE STRIP VI ONE (17:00)
[2022-01-05] MEDS ORDERED: InsuLIN REG 1unit/0.01ml Soln (100units/ml) SC ONE (17:00)
[2022-01-05] MEDS: InsuLIN REG 1unit/0.01ml Soln (100units/ml) SC SCH (23:11)
[2022-01-05] MEDS: INSULIN LANTUS (GLARGINE) 1 /0.01ml (100units/ml) SC SCH (23:12)
[2022-01-06] MEDS: cloNIDine HCL 0.1 MG TAB PO SCH ×4 (00:10→21:32)
[2022-01-06 01:18] VITALS: BP 131/94
[2022-01-06] MEDS: MORPHINE SULFATE INJ 2 MG/ml SYRG IV PRN (01:53)
[2022-01-06] MEDS ORDERED: DEXTROSE 50% SYRINGE 50 ML IV ONE (05:27)
[2022-01-06] MEDS ORDERED: DEXTROSE (50%) 50ML SYRG IV PRN (05:45)
[2022-01-06] MEDS: AZTREONAM 1GM INJ 1 GM in D5W 5% 50 ML IV SCH ×3 (06:11→21:40)
[2022-01-06 06:26] VITALS: BP 162/91
[2022-01-06] MEDS: SUCRALFATE 1 GM/10 ML ORAL SUSP PO SCH ×4 (06:39→21:32)
[2022-01-06] MEDS: ACCU-CHEK COMFORT CURVE STRIP VI SCH ×4 (06:40→21:45)
[2022-01-06] MEDS: InsuLIN REG 1unit/0.01ml Soln (100units/ml) SC SCH ×4 (06:40→21:49)
[2022-01-06] MEDS ORDERED: SODIUM CHLORIDE LOCK 10 ML ONE (09:06)
[2022-01-06] MEDS ORDERED: LIDOCAINE VISCOUS 2% 15ML UD ONE (09:06)
[2022-01-06] MEDS ORDERED: MIDAZOLAM HCL 5 MG/ML-1ML VIAL ONE (09:06)
[2022-01-06] MEDS ORDERED: fentaNYL CITRATE 100 MCG/2 ML VL ONE (09:06)
[2022-01-06] MEDS ORDERED: diphenhdrAMINE HCL 50 MG/1 ML VL ONE (09:06)
[2022-01-06 09:18] VITALS: BP 129/77
[2022-01-06] MEDS: GABAPENTIN 300 MG CAP PO SCH ×2 (09:21→21:32)
[2022-01-06] MEDS: PANTOPRAZOLE 40 MG/10 ML VIAL INJ IV SCH ×2 (09:21→21:32)
[2022-01-06] MEDS: HYDROcodone-ACET 5/325MG TAB PO PRN (09:22)
[2022-01-06] MEDS: amLODIPine BESYLATE 5 MG TAB PO SCH (09:24)
[2022-01-06 12:55] VITALS: BP 114/63
[2022-01-06] MEDS ORDERED: METOCLOPRAMIDE HCL 5MG/ml INJ 2ml VIAL IV ONE (13:45)
[2022-01-06 18:14] LABS: Albumin 2.2 g/dL (3.4-5.0); BUN/Creatinine Ratio 14.3; Calcium 7.6 mg/dL (8.5-10.1); Potassium 3.8 mmol/L (3.5-5.1)
[2022-01-06 18:18] LABS: Bilirubin, Total 0.3 mg/dL (0.2-1.0); Total Protein 5.7 g/dL (6.4-8.2)
[2022-01-06 18:23] LABS: INR 1.16 (0.9-1.15); Partial Thromboplastin Time 26.2 sec (24.6-33.4)
[2022-01-06 20:00] VITALS: BP 157/91
[2022-01-06] MEDS: ACETAMINOPHEN 325 MG TAB PO PRN (21:33)
[2022-01-06] MEDS: INSULIN LANTUS (GLARGINE) 1 /0.01ml (100units/ml) SC SCH (21:46)
[2022-01-06 22:00] VITALS: BP 157/91
[2022-01-07] MEDS: InsuLIN REG 1unit/0.01ml Soln (100units/ml) SC SCH ×3 (03:59→12:00)
[2022-01-07] MEDS: ACCU-CHEK COMFORT CURVE STRIP VI SCH ×3 (03:59→12:22)
[2022-01-07 05:00] VITALS: BP 121/71
[2022-01-07] MEDS: ACETAMINOPHEN 325 MG TAB PO PRN ×3 (05:15→09:38)
[2022-01-07] MEDS: AZTREONAM 1GM INJ 1 GM in D5W 5% 50 ML IV SCH (05:16)
[2022-01-07] MEDS: SUCRALFATE 1 GM/10 ML ORAL SUSP PO SCH ×2 (06:32→09:35)
[2022-01-07] MEDS: cloNIDine HCL 0.1 MG TAB PO SCH (06:33)
[2022-01-07 07:31] VITALS: BP 157/91
[2022-01-07 08:57] VITALS: BP 131/89
[2022-01-07] MEDS: PANTOPRAZOLE 40 MG/10 ML VIAL INJ IV SCH (09:34)
[2022-01-07] MEDS: GABAPENTIN 300 MG CAP PO SCH (09:34)
[2022-01-07] MEDS: amLODIPine BESYLATE 5 MG TAB PO SCH (09:36)
[2022-01-07] MEDS ORDERED: SUCR1SUS10 PO (10:10)
[2022-01-07] MEDS ORDERED: PANT40TA2 PO (10:10)
[2022-01-07] MEDS ORDERED: HYDR-4902 PO (11:28)
[2022-01-07] MEDS ORDERED: HYDROcodone-ACET 5/325MG TAB PO ONE (12:15)
[2022-01-07 13:00] VITALS: BP 137/95
[2022-01-07 13:34] VITALS: BP 137/95
== END 2022-01-07 14:53 | disposition home or self-care (01) | DRG 377 ==
LOC: ER 22:19 → TELE 01-04 10:28 → TELE-WESTW 01-05 23:49
PROVIDERS: ADMIT Registered Nurse; ATTEND Internal Medicine
PROC: 05HF33Z Insertion of Infusion Device into Left Cephalic Vein, Percutaneous Approach (ICD-10-PCS; 2022-01-04)
PROC: B54NZZA Ultrasonography of Left Upper Extremity Veins, Guidance (ICD-10-PCS; 2022-01-04)
PROC: 0DB68ZX Excision of Stomach, Via Natural or Artificial Opening Endoscopic, Diagnostic (ICD-10-PCS; 2022-01-06)
PROC: 0DB58ZX Excision of Esophagus, Via Natural or Artificial Opening Endoscopic, Diagnostic (ICD-10-PCS; 2022-01-06)
PROC: 0DB98ZX Excision of Duodenum, Via Natural or Artificial Opening Endoscopic, Diagnostic (ICD-10-PCS; principal; 2022-01-06 16:06)
DX: K29.71 Gastritis, unspecified, with bleeding (principal); E11.10 Type 2 diabetes mellitus with ketoacidosis without coma; N17.0 Acute kidney failure with tubular necrosis; N39.0 Urinary tract infection, site not specified; F50.00 Anorexia nervosa, unspecified; F50.2 Bulimia nervosa; G93.1 Anoxic brain damage, not elsewhere classified; K22.10 Ulcer of esophagus without bleeding; N18.4 Chronic kidney disease, stage 4 (severe); K21.01 Gastro-esophageal reflux disease with esophagitis, with bleeding; Z20.822 Contact with and (suspected) exposure to COVID-19; F12.10 Cannabis abuse, uncomplicated; D64.9 Anemia, unspecified; K44.9 Diaphragmatic hernia without obstruction or gangrene; D72.829 Elevated white blood cell count, unspecified; E86.0 Dehydration; Z98.82 Breast implant status; Z88.0 Allergy status to penicillin; Z90.49 Acquired absence of other specified parts of digestive tract; Z83.3 Family history of diabetes mellitus; Z82.49 Family history of ischemic heart disease and other diseases of the circulatory system
CPT/HCPCS: 36415; 36600; 43239; 71045; 74176; 80048; 80053; 80061; 80202; 80307; 81001; 81025; 82010; 82805; 82962; 83036; 83605; 83690; 83735; 83930; 84100; 84443; 84702; 85025; 85610; 85730; 86850; 86900; 86901; 87040; 87086; 87426; 87804; 96365; 96367; C9113; G0378; J1815; J1956; J2250; J2405; J7060

== ENCOUNTER 2022-08-12 22:04 | Inpatient (IN) | payer MEDICARE, MEDICAID ==
[~2022-08-12] VITALS: Ht 167.6 cm; Wt 72.7 kg
[~2022-08-12 22:04] MED LIST changes: -AMLO-496 PO; +AMLO1TAB23 PO; +BAC09TP TOP; +DOXY-346 PO; +GABA-1250 PO; -GABA300C10 PO; +HYDR-4902 PO; +LORA-1121 PO; -LORA0.5T20 PO; +PANT40TA2 PO; +SUCR1SUS26 PO
[2022-08-12] MEDS ORDERED: ONDANSETRON ODT 4 MG TAB PO ONE (23:30)
[2022-08-13 00:02] LABS: Basophils # (auto) 0 10 ^3/uL (0-0.2); Basophils % (auto) 0.1 % (0.0-2.0); Eosinophils # (auto) 0 10 ^3/uL (0-0.8); Lymphocytes # (auto) 1.2 10 ^3/uL (0.4-5.4); Neutrophils # (auto) 10.9 10 ^3/uL (1.6-8.6)
[2022-08-13 00:05] LABS: Hematocrit 35.9 % (36.0-46.0); Hemoglobin 10.8 g/dL (12.2-16.2); Lymphocytes % (auto) 9.3 % (10.0-50.0); Mean Corpuscular Hemoglobin 20.5 pg (28.0-32.0); Mean Corpuscular Hgb Conc. 30.2 g/dL (32.0-36.0); Mean Corpuscular Volume 67.9 fL (80.0-100.0); Monocytes # (auto) 0.9 10 ^3/uL (0-1.3); Monocytes % (auto) 6.7 % (0.0-12.0); Neutrophils % (auto) 83.9 % (37.0-80.0); Red Blood Cells 5.28 10^6/uL (4.0-5.20); Red Cell Distribution Width 18.6 % (11.8-14.3)
[2022-08-13 00:12] LABS: Albumin 3.8 g/dL (3.4-5.0); Potassium 3.6 mmol/L (3.5-5.1)
[2022-08-13 00:17] LABS: BUN/Creatinine Ratio 15.8 (10.0-20.0); Bilirubin, Total 0.7 mg/dL (0.2-1.0); Total Protein 8.5 g/dL (6.4-8.2)
[2022-08-13] MEDS ORDERED: MORPHINE SULFATE INJ 2 MG/ml SYRG IV ONE (01:15)
[2022-08-13] MEDS ORDERED: DEXTROSE (50%) 50ML SYRG IV PRN (03:15)
[2022-08-13] MEDS ORDERED: SODIUM CHLORIDE 0.9% 1,000 ML IV SCH (03:15)
[2022-08-13] MEDS ORDERED: LORazepam 2MG/ML-1ML VIAL IV PRN (03:15)
[2022-08-13] MEDS ORDERED: HYDROcodone-ACET 5/325MG TAB PO PRN (03:15)
[2022-08-13] MEDS ORDERED: NITROGLYCERIN 0.4 MG SL TAB SL PRN (06:00)
[2022-08-13] MEDS ORDERED: MORPHINE SULFATE INJ 2 MG/ml SYRG IV PRN (06:00)
[2022-08-13] MEDS ORDERED: metroNIDAZOLE 500MG/100ML 100 ML IV SCH (06:00)
[2022-08-13] MEDS: InsuLIN REG 1unit/0.01ml Soln (100units/ml) SC SCH ×3 (06:22→17:08)
[2022-08-13] MEDS: ACCU-CHEK COMFORT CURVE STRIP VI SCH ×3 (06:23→17:08)
[2022-08-13 09:39] LABS: Alcohol, Urine < 3.0 mg/dL (0-10); Barbiturate Scree,Urine NEGATIVE (NEGATIVE); Benzodiazephine Screen, Urine NEGATIVE (NEGATIVE); Cannabinoid Screen, Urine POSITIVE (NEGATIVE); Cocaine Screen, Urine NEGATIVE (NEGATIVE); Opiate Scree,Urine NEGATIVE (NEGATIVE); Phencyclidine Screen, Urine NEGATIVE (NEGATIVE)
[2022-08-13 09:43] LABS: Protein, Urine 1393.4 mg/dL (0.0-11.9)
[2022-08-13 09:46] LABS: Amphetamine Screen, Urine NEGATIVE (NEGATIVE)
[2022-08-13 09:49] LABS: Urine Bacteria FEW /hpf (None Seen); Urine Blood 1+ /uL (Negative); Urine Specific Gravity 1.023 (1.001-1.035); Urine WBC 3 /hpf (0 - 5)
[2022-08-13 10:10] VITALS: BP 143/92
[2022-08-13 10:28] VITALS: BP 155/105
[2022-08-13] MEDS: SODIUM CHLORIDE 0.9% 1,000 ML IV SCH ×2 (11:29→20:00)
[2022-08-13] MEDS: HEPARIN SODIUM (PORCINE) 5000 UNITS/ML 1ML VIAL SC SCH ×2 (11:40→22:14)
[2022-08-13] MEDS ORDERED: levoFLOXacin 500MG 100 ML IV ONE (12:15)
[2022-08-13 12:17] VITALS: BP 154/88
[2022-08-13 12:54] LABS: Basophils # (auto) 0 10 ^3/uL (0-0.2); Basophils % (auto) 0.3 % (0.0-2.0); Eosinophils # (auto) 0 10 ^3/uL (0-0.8); Eosinophils % (auto) 0.1 % (0.0-7.0); Hematocrit 38.9 % (36.0-46.0); Hemoglobin 12.1 g/dL (12.2-16.2); Mean Corpuscular Hemoglobin 20.1 pg (28.0-32.0); Mean Corpuscular Hgb Conc. 31.1 g/dL (32.0-36.0); Mean Corpuscular Volume 64.7 fL (80.0-100.0); Monocytes # (auto) 0.8 10 ^3/uL (0-1.3); Monocytes % (auto) 6.1 % (0.0-12.0); Neutrophils # (auto) 11.1 10 ^3/uL (1.6-8.6); Neutrophils % (auto) 85.5 % (37.0-80.0); Nucleated Red Blood Cells % 0.1 %; Red Blood Cells 6.02 10^6/uL (4.0-5.20); Red Cell Distribution Width 18.6 % (11.8-14.3)
[2022-08-13 13:12] LABS: Anion Gap 13 (5-15); BUN/Creatinine Ratio 15.7 (10.0-20.0); Blood Urea Nitrogen 55 mg/dL (7-18); Calcium 8.6 mg/dL (8.5-10.1); Carbon Dioxide 20 mmol/L (21-32); Chloride 110 mmol/L (98-107); GFR African American 19 mL/min; GFR Non-African American 16 mL/min; Glucose 175 mg/dL (74-106); Potassium 4.2 mmol/L (3.5-5.1); Sodium 143 mmol/L (136-145)
[2022-08-13] MEDS: ONDANSETRON HCL 4 MG/2 ML VIAL IV PRN (13:28)
[2022-08-13] MEDS: MORPHINE SULFATE INJ 2 MG/ml SYRG IV PRN ×3 (13:29→22:17)
[2022-08-13] MEDS: ACETAMINOPHEN 325 MG TAB PO PRN (15:15)
[2022-08-13 17:26] VITALS: BP 153/75
[2022-08-13 20:00] VITALS: BP 130/70
[2022-08-13 23:08] VITALS: BP 169/109
[2022-08-14] MEDS: ACCU-CHEK COMFORT CURVE STRIP VI SCH ×4 (00:12→18:38)
[2022-08-14] MEDS: InsuLIN REG 1unit/0.01ml Soln (100units/ml) SC SCH ×4 (00:15→18:47)
[2022-08-14] MEDS: MORPHINE SULFATE INJ 2 MG/ml SYRG IV PRN ×2 (02:41→06:24)
[2022-08-14 05:00] VITALS: BP 159/109
[2022-08-14] MEDS: SODIUM CHLORIDE 0.9% 1,000 ML IV SCH (06:00)
[2022-08-14] MEDS: hydrALAZINE HCL 20 MG/ML VL IV PRN ×2 (06:23→13:03)
[2022-08-14 06:30] LABS: Potassium 3.5 mmol/L (3.5-5.1)
[2022-08-14 06:32] LABS: Albumin 3.3 g/dL (3.4-5.0); Bilirubin, Direct 0.1 mg/dL (0-0.2); Bilirubin, Total 0.5 mg/dL (0.2-1.0); Phosphorus 2.6 mg/dL (2.5-4.90); Total Protein 7.4 g/dL (6.4-8.2); Uric Acid 8.2 mg/dL (2.6-6.0)
[2022-08-14 06:40] LABS: Albumin 3.3 g/dL (3.4-5.0); BUN/Creatinine Ratio 18.4 (10.0-20.0); Bilirubin, Total 0.5 mg/dL (0.2-1.0); Calcium 7.8 mg/dL (8.5-10.1); Magnesium 2.8 mg/dL (1.6-2.6); Total Protein 7.2 g/dL (6.4-8.2)
[2022-08-14 08:09] LABS: Basophils # (auto) 0 10 ^3/uL (0-0.2); Basophils % (auto) 0.1 % (0.0-2.0); Eosinophils # (auto) 0 10 ^3/uL (0-0.8); Hematocrit 33.8 % (36.0-46.0); Hemoglobin 10.6 g/dL (12.2-16.2); Lymphocytes # (auto) 1.4 10 ^3/uL (0.4-5.4); Lymphocytes % (auto) 17.5 % (10.0-50.0); Mean Corpuscular Hemoglobin 20.6 pg (28.0-32.0); Mean Corpuscular Hgb Conc. 31.2 g/dL (32.0-36.0); Mean Corpuscular Volume 65.9 fL (80.0-100.0); Monocytes # (auto) 0.6 10 ^3/uL (0-1.3); Monocytes % (auto) 7.6 % (0.0-12.0); Neutrophils # (auto) 6.1 10 ^3/uL (1.6-8.6); Neutrophils % (auto) 74.8 % (37.0-80.0); Nucleated Red Blood Cells % 0.1 %; Red Blood Cells 5.14 10^6/uL (4.0-5.20); Red Cell Distribution Width 18.4 % (11.8-14.3); White Blood Cell 8.2 10^3/uL (4.4-10.8)
[2022-08-14] MEDS: levoFLOXacin 250MG 50 ML IV SCH (10:22)
[2022-08-14] MEDS: MORPHINE SULFATE 4 MG/ML SYR/VIAL IV PRN ×4 (10:24→22:18)
[2022-08-14] MEDS: HEPARIN SODIUM (PORCINE) 5000 UNITS/ML 1ML VIAL SC SCH ×2 (10:41→22:12)
[2022-08-14 10:54] VITALS: BP 157/88
[2022-08-14 12:52] VITALS: BP 168/100
[2022-08-14] MEDS: cloNIDine HCL 0.1 MG TAB PO SCH ×2 (14:33→22:19)
[2022-08-14 16:13] VITALS: BP 143/87
[2022-08-14 22:00] VITALS: BP 154/88
[2022-08-15] MEDS: ACCU-CHEK COMFORT CURVE STRIP VI SCH ×4 (00:22→17:52)
[2022-08-15] MEDS: MORPHINE SULFATE INJ 2 MG/ml SYRG IV PRN ×2 (00:37→11:13)
[2022-08-15 05:00] VITALS: BP 134/84
[2022-08-15] MEDS: InsuLIN REG 1unit/0.01ml Soln (100units/ml) SC SCH ×4 (05:41→17:57)
[2022-08-15] MEDS: ACETAMINOPHEN 325 MG TAB PO PRN (05:42)
[2022-08-15] MEDS: cloNIDine HCL 0.1 MG TAB PO SCH ×3 (05:42→21:41)
[2022-08-15 06:35] LABS: Calcium 7.7 mg/dL (8.5-10.1); Magnesium 2.4 mg/dL (1.6-2.6); Potassium 3.7 mmol/L (3.5-5.1)
[2022-08-15 06:39] LABS: BUN/Creatinine Ratio 21.1 (10.0-20.0)
[2022-08-15] MEDS: MORPHINE SULFATE 4 MG/ML SYR/VIAL IV PRN ×3 (06:51→21:41)
[2022-08-15 07:34] LABS: Basophils # (auto) 0 10 ^3/uL (0-0.2); Basophils % (auto) 0.2 % (0.0-2.0); Eosinophils # (auto) 0 10 ^3/uL (0-0.8); Hematocrit 27.1 % (36.0-46.0); Monocytes # (auto) 0.5 10 ^3/uL (0-1.3); Monocytes % (auto) 10.1 % (0.0-12.0); Neutrophils # (auto) 2.7 10 ^3/uL (1.6-8.6); White Blood Cell 5.1 10^3/uL (4.4-10.8)
[2022-08-15 07:36] LABS: Eosinophils % (auto) 0.3 % (0.0-7.0); Hemoglobin 8.5 g/dL (12.2-16.2); Lymphocytes # (auto) 1.8 10 ^3/uL (0.4-5.4); Lymphocytes % (auto) 36.3 % (10.0-50.0); Mean Corpuscular Hemoglobin 20.7 pg (28.0-32.0); Mean Corpuscular Hgb Conc. 31.3 g/dL (32.0-36.0); Neutrophils % (auto) 53.1 % (37.0-80.0); Nucleated Red Blood Cells % 0.2 %; Red Blood Cells 4.11 10^6/uL (4.0-5.20); Red Cell Distribution Width 18.4 % (11.8-14.3)
[2022-08-15 08:34] VITALS: BP 151/86
[2022-08-15] MEDS: HEPARIN SODIUM (PORCINE) 5000 UNITS/ML 1ML VIAL SC SCH ×2 (10:00→21:51)
[2022-08-15] MEDS: levoFLOXacin 250MG 50 ML IV SCH (11:11)
[2022-08-15] MEDS: SODIUM CHLORIDE 0.9% 1,000 ML IV SCH (11:12)
[2022-08-15] MEDS: amLODIPine BESYLATE 5 MG TAB PO SCH (11:15)
[2022-08-15 12:37] VITALS: BP 158/82
[2022-08-15 16:32] VITALS: BP 186/72
[2022-08-15 22:00] VITALS: BP 132/78
[2022-08-16] MEDS: ACCU-CHEK COMFORT CURVE STRIP VI SCH ×4 (00:08→18:55)
[2022-08-16] MEDS: InsuLIN REG 1unit/0.01ml Soln (100units/ml) SC SCH ×4 (00:14→18:57)
[2022-08-16] MEDS: SODIUM CHLORIDE 0.9% 1,000 ML IV SCH ×2 (00:22→12:48)
[2022-08-16] MEDS: MORPHINE SULFATE 4 MG/ML SYR/VIAL IV PRN ×5 (01:44→20:54)
[2022-08-16 05:00] VITALS: BP 127/80
[2022-08-16] MEDS: cloNIDine HCL 0.1 MG TAB PO SCH ×3 (05:52→22:57)
[2022-08-16 06:17] LABS: BUN/Creatinine Ratio 19.6 (10.0-20.0); Calcium 7.5 mg/dL (8.5-10.1); Potassium 3.4 mmol/L (3.5-5.1)
[2022-08-16 08:00] VITALS: BP 125/67
[2022-08-16] MEDS: levoFLOXacin 250MG 50 ML IV SCH (10:01)
[2022-08-16] MEDS: amLODIPine BESYLATE 5 MG TAB PO SCH (10:02)
[2022-08-16] MEDS: HEPARIN SODIUM (PORCINE) 5000 UNITS/ML 1ML VIAL SC SCH ×2 (10:09→22:59)
[2022-08-16 12:00] VITALS: BP 169/87
[2022-08-16] MEDS ORDERED: HYDROcodone-ACET 5/325MG TAB PO PRN (12:30)
[2022-08-16] MEDS: POTASSIUM CHL 20 Meq TABLET PO ONE ×2 (12:44→18:55)
[2022-08-16] MEDS: INSULIN LANTUS (GLARGINE) 1 /0.01ml (100units/ml) SC ONE ×2 (12:44→12:45)
[2022-08-16] MEDS: hydrALAZINE HCL 20 MG/ML VL IV PRN ×2 (12:45→16:03)
[2022-08-16 16:00] VITALS: BP 97/44
[2022-08-16] MEDS ORDERED: INSULIN LANTUS (GLARGINE) 1 /0.01ml (100units/ml) SC ONE ×2 (18:15→19:00)
[2022-08-16] MEDS: GABAPENTIN 300 MG CAP PO SCH ×2 (18:55→22:57)
[2022-08-16] MEDS: ONDANSETRON HCL 4 MG/2 ML VIAL IV PRN (20:53)
[2022-08-16 22:00] VITALS: BP 150/83
[2022-08-16] MEDS: INSULIN LANTUS (GLARGINE) 1 /0.01ml (100units/ml) SC SCH (22:55)
[2022-08-16] MEDS: LORazepam 2MG/ML-1ML VIAL IV PRN (23:01)
[2022-08-17] MEDS: InsuLIN REG 1unit/0.01ml Soln (100units/ml) SC SCH ×4 (01:18→18:00)
[2022-08-17] MEDS: MORPHINE SULFATE 4 MG/ML SYR/VIAL IV PRN ×2 (01:30→06:12)
[2022-08-17 05:00] VITALS: BP 105/61
[2022-08-17] MEDS: GABAPENTIN 300 MG CAP PO SCH ×4 (06:07→21:15)
[2022-08-17] MEDS: ACCU-CHEK COMFORT CURVE STRIP VI SCH ×4 (06:09→18:09)
[2022-08-17] MEDS: cloNIDine HCL 0.1 MG TAB PO SCH ×2 (06:09→14:00)
[2022-08-17 06:19] LABS: BUN/Creatinine Ratio 16.3 (10.0-20.0); Potassium 3.5 mmol/L (3.5-5.1)
[2022-08-17 09:00] VITALS: BP 112/69
[2022-08-17] MEDS: HEPARIN SODIUM (PORCINE) 5000 UNITS/ML 1ML VIAL SC SCH ×2 (10:00→21:31)
[2022-08-17] MEDS ORDERED: DEXTROSE 10% 250 ML IV ONE ×2 (11:12→11:14)
[2022-08-17] MEDS: amLODIPine BESYLATE 5 MG TAB PO SCH (12:00)
[2022-08-17 13:00] VITALS: BP 95/63
[2022-08-17] MEDS ORDERED: DEXTROSE 10% 1,000 ML IV ONE (14:15)
[2022-08-17 17:06] VITALS: BP 147/85
[2022-08-17] MEDS: levoFLOXacin 250MG 50 ML IV SCH (18:28)
[2022-08-17 20:00] VITALS: BP 126/72
[2022-08-17] MEDS: MORPHINE SULFATE INJ 2 MG/ml SYRG IV PRN (21:09)
[2022-08-17 21:27] LABS: Basophils # (auto) 0 10 ^3/uL (0-0.2); Eosinophils # (auto) 0 10 ^3/uL (0-0.8); Hemoglobin 9.1 g/dL (12.2-16.2); Monocytes # (auto) 0.9 10 ^3/uL (0-1.3); Neutrophils # (auto) 12.5 10 ^3/uL (1.6-8.6)
[2022-08-17 21:29] LABS: Basophils % (auto) 0.2 % (0.0-2.0); Eosinophils % (auto) 0.1 % (0.0-7.0); Hematocrit 29.7 % (36.0-46.0); Lymphocytes # (auto) 1.7 10 ^3/uL (0.4-5.4); Lymphocytes % (auto) 11.4 % (10.0-50.0); Mean Corpuscular Hemoglobin 20.2 pg (28.0-32.0); Mean Corpuscular Hgb Conc. 30.6 g/dL (32.0-36.0); Neutrophils % (auto) 82.3 % (37.0-80.0); Red Cell Distribution Width 18.5 % (11.8-14.3); White Blood Cell 15.1 10^3/uL (4.4-10.8)
[2022-08-17] MEDS: INSULIN LANTUS (GLARGINE) 1 /0.01ml (100units/ml) SC SCH (21:31)
[2022-08-17 21:38] LABS: Albumin 2.8 g/dL (3.4-5.0); Calcium 7.8 mg/dL (8.5-10.1); Magnesium 2.3 mg/dL (1.6-2.6); Potassium 3.7 mmol/L (3.5-5.1)
[2022-08-17 21:41] LABS: Bilirubin, Total 0.3 mg/dL (0.2-1.0); Total Protein 5.9 g/dL (6.4-8.2)
[2022-08-17 22:00] VITALS: BP 126/72
[2022-08-17] MEDS: LORazepam 2MG/ML-1ML VIAL IV PRN (23:54)
[2022-08-18] MEDS: ACCU-CHEK COMFORT CURVE STRIP VI SCH ×4 (00:01→18:03)
[2022-08-18] MEDS: MORPHINE SULFATE INJ 2 MG/ml SYRG IV PRN ×3 (01:41→13:11)
[2022-08-18 05:00] VITALS: BP 103/55
[2022-08-18] MEDS: GABAPENTIN 300 MG CAP PO SCH ×3 (05:13→18:03)
[2022-08-18] MEDS: InsuLIN REG 1unit/0.01ml Soln (100units/ml) SC SCH ×4 (05:17→18:00)
[2022-08-18 05:56] LABS: Calcium 7.4 mg/dL (8.5-10.1); Magnesium 1.8 mg/dL (1.6-2.6); Potassium 3.6 mmol/L (3.5-5.1)
[2022-08-18 06:42] LABS: Basophils # (auto) 0 10 ^3/uL (0-0.2); Basophils % (auto) 0.2 % (0.0-2.0); Eosinophils # (auto) 0.1 10 ^3/uL (0-0.8); Hemoglobin 7.5 g/dL (12.2-16.2); Mean Corpuscular Hemoglobin 21.1 pg (28.0-32.0); Mean Corpuscular Volume 64.6 fL (80.0-100.0); Monocytes # (auto) 0.8 10 ^3/uL (0-1.3); Red Cell Distribution Width 18.6 % (11.8-14.3)
[2022-08-18 06:45] LABS: Eosinophils % (auto) 0.9 % (0.0-7.0); Lymphocytes # (auto) 2.8 10 ^3/uL (0.4-5.4); Lymphocytes % (auto) 27.8 % (10.0-50.0); Mean Corpuscular Hgb Conc. 32.6 g/dL (32.0-36.0); Neutrophils # (auto) 6.4 10 ^3/uL (1.6-8.6); Neutrophils % (auto) 63.1 % (37.0-80.0); Nucleated Red Blood Cells % 0.1 %; Red Blood Cells 3.57 10^6/uL (4.0-5.20); White Blood Cell 10.1 10^3/uL (4.4-10.8)
[2022-08-18 09:10] VITALS: BP 101/69
[2022-08-18] MEDS: LORazepam 2MG/ML-1ML VIAL IV PRN ×2 (09:17→16:22)
[2022-08-18] MEDS: levoFLOXacin 250MG 50 ML IV SCH (09:21)
[2022-08-18] MEDS: amLODIPine BESYLATE 5 MG TAB PO SCH (09:21)
[2022-08-18] MEDS: HEPARIN SODIUM (PORCINE) 5000 UNITS/ML 1ML VIAL SC SCH (10:00)
[2022-08-18 12:40] VITALS: BP 138/87
[2022-08-18 13:41] VITALS: BP 129/82
[2022-08-19 09:55] LABS: Hepatitis A Ab IgM Negative; Hepatitis B Core IgM Negative
[2022-08-19 09:56] LABS: Hepatitis C Antibody Negative (Negative)
== END 2022-08-18 20:10 | disposition home or self-care (01) | DRG 683 ==
LOC: EDBD 22:04 → ER 22:16 → OVERFLOW 08-13 05:51 → WEST WING 08-13 09:56
PROVIDERS: ADMIT Nurse Practitioner Family; ATTEND Internal Medicine Geriatric Medicine
DX: N17.9 Acute kidney failure, unspecified (principal); F11.20 Opioid dependence, uncomplicated; N39.0 Urinary tract infection, site not specified; G93.1 Anoxic brain damage, not elsewhere classified; N13.9 Obstructive and reflux uropathy, unspecified; N18.4 Chronic kidney disease, stage 4 (severe); E11.65 Type 2 diabetes mellitus with hyperglycemia; D75.839 Thrombocytosis, unspecified; I12.9 Hypertensive chronic kidney disease with stage 1 through stage 4 chronic kidney disease, or unspecified chronic kidney disease; G89.29 Other chronic pain; K21.00 Gastro-esophageal reflux disease with esophagitis, without bleeding; F41.9 Anxiety disorder, unspecified; F32.A Depression, unspecified; R33.8 Other retention of urine; R80.9 Proteinuria, unspecified; K44.9 Diaphragmatic hernia without obstruction or gangrene; N32.89 Other specified disorders of bladder; E11.22 Type 2 diabetes mellitus with diabetic chronic kidney disease; F12.10 Cannabis abuse, uncomplicated; Z90.49 Acquired absence of other specified parts of digestive tract; Z88.0 Allergy status to penicillin
CPT/HCPCS: 36415; 36600; 74176; 76775; 80048; 80053; 80074; 80076; 80307; 81001; 82570; 82805; 82962; 83036; 83516; 83690; 83735; 84100; 84156; 84300; 84443; 84550; 85025; 85652; 86160; 86225; 86235; 86701; 86703; 87040; 87086; 87088; G0378; J1815; J1956; J2405; J3490; Q0162

== ENCOUNTER 2024-05-04 11:49 | Emergency (ER) | payer MEDICARE, MEDICAID ==
[~2024-05-04 11:49] MED LIST changes: -DOXY-346 PO
== END 2024-05-04 12:06 | disposition left against medical advice (07) ==
LOC: ER 11:54
DX: R79.9 Abnormal finding of blood chemistry, unspecified (principal); Z53.21 Procedure and treatment not carried out due to patient leaving prior to being seen by health care provider